=== PATIENT | male | born 1990 | race Caucasian/White ===

== ENCOUNTER 2017-01-14 20:46 | Emergency (ER) | payer SELFPAY ==
[~2017-01-14] VITALS: Ht 167.6 cm; Wt 81.6 kg
[2017-01-14 20:51] VITALS: BP 144/80
--- NOTE | 2017-01-14 21:44 | NUR ---
Patient ambulated to bed 05.
--- NOTE | 2017-01-14 21:48 | NUR ---
Dr. Avelar evaluating patient at bedside.
--- NOTE | 2017-01-14 21:50 | NUR ---
26Y/M PT PRESENTS TO ER W/C/O ANXIETY. PT STATES YESTERDAY HIS HANDS BECAME SWEATY AND HE FELT HIS HEART WAS RACING. HR 65 BPM UPON ARRIVAL TO ER. AAO X4, AMBULATORY WITH STEADY GAIT. RESPIRATIONS EVEN AND UNLABORED. VSS, NO S/SX OF DISTRESS AT THIS TIME. ER MD MADE AWARE OF PT. STATUS.
[2017-01-14] MEDS ORDERED: LORazepam 1 MG TAB PO ONE (21:55)
[2017-01-14] MEDS ORDERED: LIDOCAINE VISCOUS 2% 20 ML UDC PO ONE (21:55)
[2017-01-14] MEDS ORDERED: DICYCLOMINE HCL LIQUID 10 MG/5 ML UDC PO ONE (21:55)
[2017-01-14] MEDS ORDERED: ALUMINUM HYD/MAG/SIMETHICONE 30 ML UDC PO ONE (21:55)
[2017-01-14 22:17] LABS: APPEARANCE,URINE CLEAR (CLEAR); BILIRUBIN,URINE NEGATIVE (NEGATIVE); BLOOD, URINE NEGATIVE (NEGATIVE); COLOR,URINE YELLOW (YELLOW); LEUKOCYTE ESTERASE ,URINE NEGATIVE (NEGATIVE); NITRITE, URINE NEGATIVE (NEGATIVE); PROTEIN,URINE NEGATIVE (NEGATIVE); UGLUCOSE NEGATIVE (NEGATIVE); UROBILINOGEN,URINE 0.2 EU/dL (0.2 - 1)
[2017-01-14 22:21] LABS: BASOPHILS # (AUTO) 0.1 K/uL (0.00-0.22); BASOPHILS % (AUTO) 1.1 % (0.0-2.0); EOSINOPHILS # (AUTO) 0.2 K/uL (0-0.4); EOSINOPHILS % (AUTO) 2.2 % (0.0-4.0); HEMATOCRIT 49.4 % (36-52); HEMOGLOBIN 15.8 g/dL (12.0-18.0); LYMPHOCYTES # (AUTO) 1.7 K/uL (2.0-11.5); LYMPHOCYTES % (AUTO) 15.5 % (20.5-51.1); MEAN CORPUSCULAR HEMOGLOBIN 27 pg (27-31); MEAN CORPUSCULAR HGB CONC 32 g/dL (33-37); MEAN CORPUSCULAR VOLUME 84 fL (80-94); MONOCYTES # (AUTO) 0.6 K/uL (0.8-1.0); MONOCYTES % (AUTO) 5.5 % (1.7-9.3); NEUTROPHILS # (AUTO) 8.3 K/uL (1.8-7.7); NEUTROPHILS % (AUTO) 75.7 % (42.2-75.2); PLATELET COUNT (AUTO) 210 K/uL (140-450); RED BLOOD CELL COUNT(AUTO) 5.91 MIL/uL (4.20-6.10); RED CELL DISTRIBUTION WIDTH 12.5 % (11.6-13.7); WHITE BLOOD COUNT (AUTO) 10.9 K/uL (4.8-10.8)
[2017-01-14 22:28] LABS: AMPHETAMINE, URINE NEG. ng/ml (NEG <=1000); BARBITURATE, URINE NEG. ng/ml (NEG <=200); BENZODIAZEPINE, URINE NEG. ng/mL (NEG <=200); CANNABINOID, URINE POS. ng/mL (NEG <=50); COCAINE, URINE NEG. ng/mL (NEG <=300); OPIATE, URINE NEG. ng/mL (NEG <=2000); PHENCYCLIDINE SCREEN,URINE NEG. ng/mL (NEG <=25)
[2017-01-14 22:29] LABS: ANION GAP 11.6 (8-16); CALCIUM 9.3 mg/dL (8.5-10.1); CARBON DIOXIDE 29.4 mmol/L (21-32); CREATININE 1.1 mg/dL (0.7-1.3)
[2017-01-14 22:36] LABS: ALBUMIN 4.6 g/dL (3.4-5.0); TOTAL BILIRUBIN 0.8 mg/dL (0.0-1.0); TOTAL PROTEIN, SERUM 8.2 g/dL (6.4-8.2)
--- NOTE | 2017-01-14 23:05 | NUR ---
Patient discharged with v/s stable. Written and verbal after care instructions given and explained. Patient alert, oriented and verbalized understanding of instructions. Ambulatory with steady gait. All questions addressed prior to discharge. ID band removed. Patient advised to follow up with PMD. Rx of ATIVAN 1 MG, ZANTAC 300 MG given. Patient educated on indication of medication including possible reaction and side effects. Opportunity to ask questions provided and answered.
[2017-01-14 23:07] VITALS: BP 122/82
== END 2017-01-14 23:05 | disposition home or self-care (01) ==
LOC: MED 20:46
DX: R07.89 Other chest pain (principal); K21.9 Gastro-esophageal reflux disease without esophagitis; F41.9 Anxiety disorder, unspecified; F12.10 Cannabis abuse, uncomplicated; F10.99 Alcohol use, unspecified with unspecified alcohol-induced disorder
CPT/HCPCS: 36415; 80053; 80305; 81003; 85025; 93005; 99285

== ENCOUNTER 2017-06-13 20:16 | Emergency (ER) | payer OTHER ==
[~2017-06-13] VITALS: Ht 167.6 cm; Wt 72.6 kg
[2017-06-13 20:53] VITALS: BP 127/70
--- NOTE | 2017-06-13 20:58 | NUR ---
PT PROVIDED URINE CUP
--- NOTE | 2017-06-13 20:59 | NUR ---
pt to lobby awaiting room for MSE. VSS.
--- NOTE | 2017-06-14 00:27 | NUR ---
Patient to OF2. RN evaluating patient.
[2017-06-14 00:29] VITALS: BP 127/70
--- NOTE | 2017-06-14 00:30 | NUR ---
PATIENT PRESENTS TO ED WITH BODY CHILLS; VOMITING;ORTEGA; X 1 DAY PT SKIN IS PINK/WARM/DRY; AAOX4 WITH EVEN AND STEADY GAIT; LUNGS CLEAR BL; HR EVEN AND REGULAR; PT DENIES ANY CP, SOB AT THIS TIME; PATIENT STATES PAIN OF 7/10 AT THIS TIME; VSS; PATIENT POSITIONED FOR COMFORT; HOB ELEVATED; BEDRAILS UP X2; BED DOWN. ER MD MADE AWARE OF PT STATUS.
[2017-06-14] MEDS ORDERED: ONDANSETRON 4 MG/2 ML VIAL IVP ONE (00:40)
[2017-06-14] MEDS ORDERED: NACL 0.9% 1,000 ML IV ONE (00:40)
[2017-06-14] MEDS ORDERED: KETOROLAC 30 MG/ML VIAL IVP ONE (00:40)
--- NOTE | 2017-06-14 01:22 | NUR ---
Patient appears to be resting comfortably in bed. Vital Signs within normal limits. Respirations even and unlabored.
--- NOTE | 2017-06-14 01:35 | NUR ---
IV removed, catheter intact and site benign. Applied folded 4x4 gauze and tape to stop bleeding.
--- NOTE | 2017-06-14 01:46 | NUR ---
Patient discharged with v/s stable. Written and verbal after care instructions given and explained. Patient verbalized understanding. Ambulatory with steady gait. All questions addressed prior to discharge. Advised to follow up with PMD. DISCHARGED BY DR ARROYO
== END 2017-06-14 01:46 | disposition home or self-care (01) ==
LOC: MED 20:16
DX: B34.9 Viral infection, unspecified (principal); K21.9 Gastro-esophageal reflux disease without esophagitis
CPT/HCPCS: 96361; 96374; 96375; 99284; J1885; J2405; J7030

== ENCOUNTER 2017-07-10 09:01 | Emergency (ER) | payer OTHER ==
[~2017-07-10] VITALS: Ht 167.6 cm; Wt 77.7 kg
[2017-07-10 09:14] VITALS: BP 131/83
--- NOTE | 2017-07-10 09:17 | NUR ---
PT AA&OX4 WITH EVEN AND STEADY GAIT, RR EVEN/UNLABORED; PT TO LOBBY AWAITING OPEN BED.
--- NOTE | 2017-07-10 09:49 | NUR ---
PT AMBULATED TO BED 11.
--- NOTE | 2017-07-10 09:50 | NUR ---
27M BIB FAMILY C/O LLQ ABDOMINAL PAIN X 1 WEEK. HX: GERD, H.PYLORI. SKIN IS PINK/WARM/DRY; AAOX4 WITH EVEN AND STEADY GAIT; LUNGS CLEAR BL; PATIENT STATES PAIN OF 5/10 AT THIS TIME; PATIENT POSITIONED FOR COMFORT; HOB ELEVATED; BEDRAILS UP X2; BED DOWN. ER MD MADE AWARE OF PT STATUS.
--- NOTE | 2017-07-10 10:14 | NUR ---
PT TAKEN TO CT
[2017-07-10 11:25] VITALS: BP 109/74
--- NOTE | 2017-07-10 11:25 | NUR ---
Patient discharged with v/s stable. Written and verbal after care instructions given and explained. Patient alert, oriented and verbalized understanding of instructions. Ambulatory with steady gait. All questions addressed prior to discharge. ID band removed. Patient advised to follow up with PMD. Rx of BENTYL given. Patient educated on indication of medication including possible reaction and side effects. Opportunity to ask questions provided and answered.
== END 2017-07-10 11:25 | disposition home or self-care (01) ==
LOC: MED 09:01
DX: R10.32 Left lower quadrant pain (principal); K21.9 Gastro-esophageal reflux disease without esophagitis
CPT/HCPCS: 81002; 99284

== ENCOUNTER 2017-12-08 21:22 | Emergency (ER) | payer OTHER ==
[~2017-12-08] VITALS: Ht 167.6 cm; Wt 75.9 kg
[2017-12-08 21:25] VITALS: BP 136/78
--- NOTE | 2017-12-08 21:30 | NUR ---
PT AMBULATED TO ROOM 6 BY BETTY NINO
--- NOTE | 2017-12-08 21:35 | NUR ---
PT PRESENTS C/O LLQ AND EPIGASTRIC ABD PAIN WORSENING TODAY BUT HAS HX OF PAIN OVER LAST YEAR. SEEN BY PMD AND TOLD HE NEEDS TO SEE A GI SPECIALIST BUT HAS YET TO SEE ONE. PAIN IS 5/10 BURNING PAIN, NON RADIATING. NAD, PLACED ON MONITOR. WILL CONTINUE TO MONITOR CLOSELY. HX OF GERD AND H. PYLORI PT DENIES N/V/D; SKIN IS INTACT, PINK/WARM/DRY; AAOX4, PERRL, WITH EVEN AND STEADY GAIT; LUNGS CLEAR BL, BREATHING UNLABORED; HR EVEN AND REGULAR, BL PERIPHERAL PULSES PRESENT; BS ACTIVE X4, NO TENDERNESS TO PALPATION, NO HEPATOSPLENOMEGALLY PALPATED, RESONANT TO PERCUSSION; PT DENIES ANY FEVER, CP, SOB, OR COUGH AT THIS TIME; PT STATES 5/10 PAIN AT THIS TIME; VSS; PATIENT POSITIONED FOR COMFORT; HOB ELEVATED; BEDRAILS UP X2; BED DOWN.
[2017-12-08] MEDS ORDERED: DICYCLOMINE HCL LIQUID 20 MG, ALUMINUM HYD/MAG/SIMETHICONE 30 ML, LIDOCAINE VISCOUS 2% ... PO ONE ×3 (22:10)
[2017-12-08 22:28] VITALS: BP 112/70
--- NOTE | 2017-12-08 22:28 | NUR ---
Patient discharged with v/s stable. Written and verbal after care instructions given and explained. Patient alert, oriented and verbalized understanding of instructions. Ambulatory with steady gait. All questions addressed prior to discharge. ID band removed. Patient advised to follow up with PMD. Rx of PRILOSEC AND MOTRIN given. Patient educated on indication of medication including possible reaction and side effects. Opportunity to ask questions provided and answered.
== END 2017-12-08 22:28 | disposition home or self-care (01) ==
LOC: MED 21:22
DX: R10.12 Left upper quadrant pain (principal); R19.7 Diarrhea, unspecified; R11.0 Nausea; K21.9 Gastro-esophageal reflux disease without esophagitis; F17.210 Nicotine dependence, cigarettes, uncomplicated
CPT/HCPCS: 81002; 99283

== ENCOUNTER 2018-03-04 16:23 | Emergency (ER) | payer OTHER ==
[~2018-03-04] VITALS: Ht 167.6 cm; Wt 72.6 kg
[2018-03-04 16:28] VITALS: BP 120/74
--- NOTE | 2018-03-04 17:20 | NUR ---
PT AMBULATED TO BED #5
--- NOTE | 2018-03-04 17:21 | NUR ---
PT PRESENTED ER WITH C/O PAIN TO THE CHEST X 2 1/2 WEEKS. PT FEELS THAT IT IS MUSCULAR DUE TO THE TENDERNESS TO TOUCH. PT STATED THAT HE SNEEZED AND FELT PAIN IN HIS CHEST. HE HAS BEEN TAKING IBUPROFEN WITH NO RELIEF. PT FEELS SHARP AND AT TIMES IT RADIATES TO BACK. KNA AND MEDICAL HX GERD. DENIES N/V/D; SKIN IS PINK/WARM/DRY; AAOX4 WITH EVEN AND STEADY GAIT; HR EVEN AND REGULAR; PT DENIES ANY FEVER,SOB, OR COUGH AT THIS TIME; PATIENT STATES PAIN OF 6/10 AT THIS TIME; VSS; PATIENT POSITIONED FOR COMFORT; HOB ELEVATED; BEDRAILS UP X2; BED DOWN. ER MD MADE AWARE OF PT STATUS.
[2018-03-04] MEDS ORDERED: DEXAMETHASONE 4 MG/ML VIAL IVP ONE (18:30)
[2018-03-04] MEDS ORDERED: IPRATROPIUM 0.02% 0.5 MG/2.5 ML NEBU INH ONE (18:30)
[2018-03-04] MEDS ORDERED: ALBUTEROL 0.083% 2.5 MG/3 ML NEBU INH ONE (18:30)
[2018-03-04] MEDS ORDERED: KETOROLAC 30 MG/ML VIAL IVP ONE (18:30)
--- NOTE | 2018-03-04 18:42 | NUR ---
Breathing treatment administered at bedside by respiratory therapist.
[2018-03-04] MEDS ORDERED: DEXAMETHASONE 4 MG/ML VIAL IM ONE (18:50)
[2018-03-04] MEDS ORDERED: KETOROLAC 30 MG/ML VIAL IM ONE (18:50)
--- NOTE | 2018-03-04 18:59 | NUR ---
PATIENT CAME IN DUE TO A PAIN ON THE LEFT SIDE OF THE CHEST THAT OCCURED AFTER A SNEEZE. PATIENT STATES NO HISTORY OF ASTHMA OR RESPIRATORY DISEASES. PATIENT STATES HE OCCASIONALLY SMOKES MARIJUANA. PATIENT STATES THAT HE HAD A COLD LAST WEEK THAT LASTED ABOUT 3 DAYS OF RUNNING NOSE AND WHITE/CLEAR PHLEGM IN HIS THROAT BUT NO COUGH.
--- NOTE | 2018-03-04 19:08 | NUR ---
PT STATED CHEST PAIN RELIEVED. FAMILY AT BEDSIDE.
--- NOTE | 2018-03-04 19:10 | NUR ---
REPORT GIVEN TO JEAN NINO.
[2018-03-04 19:15] LABS: BASOPHILS % (AUTO) 0.2 % (0.0-2.0); EOSINOPHILS # (AUTO) 0.2 K/uL (0-0.4); EOSINOPHILS % (AUTO) 2.7 % (0.0-4.0); HEMATOCRIT 45.2 % (36-52); HEMOGLOBIN 14.8 g/dL (12.0-18.0); LYMPHOCYTES # (AUTO) 1.6 K/uL (2.0-11.5); LYMPHOCYTES % (AUTO) 21.7 % (20.5-51.1); MEAN CORPUSCULAR HEMOGLOBIN 27 pg (27-31); MEAN CORPUSCULAR HGB CONC 33 g/dL (33-37); MEAN CORPUSCULAR VOLUME 83.6 fL (80-94); MONOCYTES # (AUTO) 0.4 K/uL (0.8-1.0); MONOCYTES % (AUTO) 5.5 % (1.7-9.3); NEUTROPHILS # (AUTO) 5.2 K/uL (1.8-7.7); NEUTROPHILS % (AUTO) 69.9 % (42.2-75.2); PLATELET COUNT (AUTO) 217 K/uL (140-450); RED BLOOD CELL COUNT(AUTO) 5.41 MIL/uL (4.20-6.10); RED CELL DISTRIBUTION WIDTH 13.3 % (11.6-13.7); WHITE BLOOD COUNT (AUTO) 7.4 K/uL (4.8-10.8)
--- NOTE | 2018-03-04 19:24 | NUR ---
pt laying in bed, appears to be in no acute distress, pending d/c paperwork from dr álvarez.
[2018-03-04 19:26] LABS: ALBUMIN 4.1 g/dL (3.4-5.0); ANION GAP 13.5 (8-16); CARBON DIOXIDE 28.6 mmol/L (21-32); CREATININE 0.9 mg/dL (0.7-1.3); POTASSIUM 4.1 mmol/L (3.5-5.1); TOTAL BILIRUBIN 0.5 mg/dL (0.0-1.0)
[2018-03-04 19:30] VITALS: BP 120/74
--- NOTE | 2018-03-04 19:30 | NUR ---
Patient discharged with v/s stable. Written and verbal after care instructions given and explained. Patient alert, oriented and verbalized understanding of instructions. Ambulatory with steady gait. All questions addressed prior to discharge. ID band removed. Patient advised to follow up with PMD. Rx of IBUPROFEN, PREDNISONE AND ACETAMINOPHEN WAS given. Patient educated on indication of medication including possible reaction and side effects. Opportunity to ask questions provided and answered.
[2018-03-04 19:35] LABS: PROTHROMBIN TIME 10.7 secs (10.8-13.4)
== END 2018-03-04 19:30 | disposition home or self-care (01) ==
LOC: MED 16:23
DX: R07.89 Other chest pain (principal); R06.02 Shortness of breath; K21.9 Gastro-esophageal reflux disease without esophagitis
CPT/HCPCS: 36415; 71045; 80053; 84484; 85025; 85610; 85730; 93005; 96372; 99285; J1885; J7613; J7644; Q0092; J1100

== ENCOUNTER 2018-03-08 01:23 | Emergency (ER) | payer OTHER ==
[~2018-03-08] VITALS: Ht 167.6 cm; Wt 72.6 kg
[2018-03-08 01:26] VITALS: BP 124/88
--- NOTE | 2018-03-08 01:31 | NUR ---
TO LOBBY AMBULATORY, A/W BED, ANGELA VERNON NOTED
--- NOTE | 2018-03-08 01:50 | NUR ---
PATIENT AMBULATED TO ER BED 9.
--- NOTE | 2018-03-08 01:54 | NUR ---
PATIENT IS A 27 Y/O MALE WHO PRESENTS TO THE ED C/O RASH. PT STATES THAT HE WAS GIVEN RX OF PREDNISONE AND HAD A BODY RASH START TONIGHT. PT REPORTS 5/10 ITCHING BODY PAIN THAT DOES NOT RADIATE. PT STATES THAT HE WAS SEEN RECENTLY IN ER AND GIVEN PREDNISONE RX. PT DENIES CP, SOB, REPORTS NAUSEA DENIES VOMITING/DIARRHEA. PT AWAKE AND ALERT, RR EVEN/UNLABORED. PT REPOSITIONED FOR COMFORT, BED IN LOWEST POSITION. ER MD DR. WARD NOTIFIED. WILL CONTINUE TO MONITOR.
[2018-03-08] MEDS ORDERED: diphenhydrAMINE 50 MG CAP PO ONE (02:30)
[2018-03-08 02:45] VITALS: BP 119/82
--- NOTE | 2018-03-08 02:45 | NUR ---
Patient discharged with v/s stable. Written and verbal after care instructions given and explained. Patient alert, oriented and verbalized understanding of instructions. Ambulatory with steady gait. All questions addressed prior to discharge. ID band removed. Patient advised to follow up with PMD. Rx of BENADRYL 50MG given. Patient educated on indication of medication including possible reaction and side effects. Opportunity to ask questions provided and answered.
[2018-03-08] MEDS ORDERED: OMEP20TC10 PO (21:18)
== END 2018-03-08 02:45 | disposition home or self-care (01) ==
LOC: MED 01:23
DX: L50.9 Urticaria, unspecified (principal); K21.9 Gastro-esophageal reflux disease without esophagitis
CPT/HCPCS: 99283; Q0163

== ENCOUNTER 2018-03-08 21:11 | Emergency (ER) | payer OTHER ==
[~2018-03-08] VITALS: Ht 167.6 cm; Wt 72.6 kg
[2018-03-08 21:13] VITALS: BP 116/78
[2018-03-08] MEDS ORDERED: OMEP20TC10 PO (21:18)
--- NOTE | 2018-03-08 21:19 | NUR ---
pt ambulated to er bed 03
--- NOTE | 2018-03-08 21:22 | NUR ---
Report given to Myron NINO.
--- NOTE | 2018-03-08 21:25 | NUR ---
PATIENT SHARON 27 Y/O MALE WHO PRESENTS TO THE ED C/O RASH. PT STATES THAT HE WAS SEEN EARLIER AND GIVEN BENADRYL RX. PT DENIES PAIN AT THIS TIME, NOTED BODY RASH AT THIS TIME. PT DENIES CP, SOB, N/V/D. PT AWAKE AND ALERT, RR EVEN/UNLABORED. PT REPOSITIONED FOR COMFORT, BED IN LOWEST POSITION. ER MD DR. GREGORIO NOTIFIED. WILL CONTINUE TO MONITOR.
[2018-03-08] MEDS ORDERED: DEXAMETHASONE 10 MG/ML VIAL IM ONE (21:35)
[2018-03-08 21:58] VITALS: BP 121/82
--- NOTE | 2018-03-08 21:58 | NUR ---
Patient discharged with v/s stable. Written and verbal after care instructions given and explained. Patient verbalized understanding. Ambulatory with steady gait. All questions addressed prior to discharge. Advised to follow up with PMD.
== END 2018-03-08 21:58 | disposition home or self-care (01) ==
LOC: MED 21:11
DX: L50.9 Urticaria, unspecified (principal); K21.9 Gastro-esophageal reflux disease without esophagitis
CPT/HCPCS: 96372; 99283; J1100

== ENCOUNTER 2018-03-13 22:50 | Emergency (ER) | payer OTHER ==
[~2018-03-13] VITALS: Ht 167.6 cm; Wt 77.1 kg
[~2018-03-13 22:50] MED LIST: OMEP20TC10 PO
[2018-03-13 22:59] VITALS: BP 143/81
--- NOTE | 2018-03-13 23:01 | NUR ---
PT TAKEN TO BED 12
--- NOTE | 2018-03-13 23:10 | NUR ---
PT PRESENTS TO ED WITH C/O HEADACHE AND NAUSEA X TODAY UPON WAKING UP. PER PT "I WOKE UP AN HOUR AGO AND JUST FELT WEIRD" PT REPORTS HX OF ANXIETY. PT DENIES CP, SOB AT THIS TIME. ABDONMEN IS SOFT, NON-TENDER. BOWEL SOUNDS ACTIVE X 4 QUADRANTS. PT IS ALERT AND ORIENTED TO NAME, , EVENT. PT PLACED ON MONITORS. VSS. SUPA IBARRA.
--- NOTE | 2018-03-13 23:32 | NUR ---
Dr. Russell evaluating patient at bedside.
[2018-03-13] MEDS ORDERED: KETOROLAC 60 MG/2 ML VIAL IM ONE (23:40)
[2018-03-14] MEDS ORDERED: PROCHLORPERAZINE 10 MG/2 ML VIAL IM ONE (00:30)
[2018-03-14] MEDS ORDERED: diphenhydrAMINE 50 MG/ML VIAL IM ONE (00:30)
--- NOTE | 2018-03-14 01:13 | NUR ---
PT RETURN FROM CT
[2018-03-14 01:40] VITALS: BP 137/77
== END 2018-03-14 01:40 | disposition home or self-care (01) ==
LOC: MED 22:50
DX: R51 Headache (principal); R11.2 Nausea with vomiting, unspecified; R42 Dizziness and giddiness; R07.89 Other chest pain; K21.9 Gastro-esophageal reflux disease without esophagitis; F41.9 Anxiety disorder, unspecified
CPT/HCPCS: 70450; 93005; 96372; 99284; J0780; J1200; J1885

== ENCOUNTER 2018-06-12 17:21 | Emergency (ER) | payer OTHER ==
[~2018-06-12] VITALS: Ht 167.6 cm; Wt 74.9 kg
[2018-06-12 17:35] VITALS: BP 126/75
--- NOTE | 2018-06-12 17:37 | NUR ---
PT AMBULATES BACK TO THE LOBBY
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
[2018-06-12 21:03] VITALS: BP 122/75
== END 2018-06-12 21:06 | disposition home or self-care (01) ==
LOC: MED 17:21
DX: H72.92 Unspecified perforation of tympanic membrane, left ear (principal); K21.9 Gastro-esophageal reflux disease without esophagitis
CPT/HCPCS: 99281

== ENCOUNTER 2018-08-27 17:02 | Emergency (ER) | payer OTHER ==
[~2018-08-27] VITALS: Ht 170.2 cm; Wt 79.4 kg
[2018-08-27 17:08] VITALS: BP 118/70
--- NOTE | 2018-08-27 17:50 | NUR ---
PT TO ER BED 12
--- NOTE | 2018-08-27 18:00 | NUR ---
c/o LLQ pain x last night bloated , emesis x1 last bm today, soft non straining
--- NOTE | 2018-08-27 19:22 | NUR ---
report given to yaneli Garcia
--- NOTE | 2018-08-27 19:23 | NUR ---
RECEIVED BEDSIDE REPORT FROM TRUNG UP. PT RESTING IN BED. VSS.
--- NOTE | 2018-08-27 20:45 | NUR ---
PT STILL RESTING, STATES PAIN HAS DIMINISHED TO TOLERABLE LEVEL ON IT'S OWN. VSS.
[2018-08-27 21:10] VITALS: BP 102/64
== END 2018-08-27 21:10 | disposition home or self-care (01) ==
LOC: MED 17:02
DX: R10.9 Unspecified abdominal pain (principal); K21.9 Gastro-esophageal reflux disease without esophagitis; Z79.899 Other long term (current) drug therapy
CPT/HCPCS: 99284

== ENCOUNTER 2018-09-22 23:23 | Emergency (ER) | payer OTHER ==
[~2018-09-22] VITALS: Ht 165.1 cm; Wt 88.5 kg
[2018-09-22 23:32] VITALS: BP 113/73
--- NOTE | 2018-09-22 23:35 | NUR ---
TO LOBBY VIA W/C, VSS, A/W BED, JANEEN NOTED
--- NOTE | 2018-09-22 23:40 | NUR ---
Dustin arias in [facility] - 09/22/18 at 2341 by CATALINO PT TAKEN TO BED 7
--- NOTE | 2018-09-23 00:17 | NUR ---
PT TAKEN TO BED 9
--- NOTE | 2018-09-23 00:25 | NUR ---
BIB GIRLFRIEND FOR ETOH INTOXICATION. PT STATED THAT HE HAD 3 BEERS AND HAS SOB AND ABDOMINAL PAIN, HAS NAUSEA, DIFFICULTY PASSING GAS, CAN'T VOMIT X 2 DAYS. LS CLEAR TO AUSCULTATION, SATING 96%, RR 16. BS X 4 Q, TENDER TO PALPATION ON LLQ. ABD SOFT AND NON DISTENDED.ER MD AWARE, SAFETY PRECAUTIONS IN PLACE.
--- NOTE | 2018-09-23 00:56 | NUR ---
Dr. Russell evaluating patient at bedside.
[2018-09-23 01:32] LABS: BASOPHILS % (AUTO) 0.2 % (0.0-2.0); EOSINOPHILS % (AUTO) 0.6 % (0.0-4.0); HEMATOCRIT 42.8 % (36-52); HEMOGLOBIN 14.2 g/dL (12.0-18.0); LYMPHOCYTES # (AUTO) 1.6 K/uL (2.0-11.5); LYMPHOCYTES % (AUTO) 25.4 % (20.5-51.1); MEAN CORPUSCULAR HEMOGLOBIN 27 pg (27-31); MEAN CORPUSCULAR HGB CONC 33 g/dL (33-37); MEAN CORPUSCULAR VOLUME 82.1 fL (80-94); MONOCYTES # (AUTO) 0.3 K/uL (0.8-1.0); MONOCYTES % (AUTO) 4.8 % (1.7-9.3); NEUTROPHILS # (AUTO) 4.5 K/uL (1.8-7.7); PLATELET COUNT (AUTO) 203 K/uL (140-450); RED BLOOD CELL COUNT(AUTO) 5.22 MIL/uL (4.20-6.10); RED CELL DISTRIBUTION WIDTH 13.3 % (11.6-13.7); WHITE BLOOD COUNT (AUTO) 6.4 K/uL (4.8-10.8)
[2018-09-23 01:38] LABS: BARBITURATE, URINE NEG. ng/ml (NEG <=200); BENZODIAZEPINE, URINE NEG. ng/mL (NEG <=200); CANNABINOID, URINE NEG. ng/mL (NEG <=50); COCAINE, URINE NEG. ng/mL (NEG <=300); OPIATE, URINE NEG. ng/mL (NEG <=2000); PHENCYCLIDINE SCREEN,URINE NEG. ng/mL (NEG <=25)
[2018-09-23 01:51] LABS: ANION GAP 18.1 (8-16); CARBON DIOXIDE 22.7 mmol/L (21-32); CHLORIDE 104 mmol/L (98-107); CREATININE 0.8 mg/dL (0.7-1.3); GFR ARICAN-AMERICAN 149 mL/min (>90); GLUCOSE 111 mg/dL (74-106); POTASSIUM 3.8 mmol/L (3.5-5.1); SODIUM SERUM 141 mmol/L (136-145); UREA NITROGEN, BLOOD 8 mg/dL (7-18)
[2018-09-23 01:57] LABS: ALBUMIN 4.3 g/dL (3.4-5.0); ASPARTATE AMINOTRANSFERASE 32 U/L (15-37); TOTAL BILIRUBIN 0.2 mg/dL (0.0-1.0)
[2018-09-23 02:01] LABS: ACETAMINOPHEN < 0.5 ug/ml (10-30); SALICYLATE < 2.8 mg/dL (2.8-20.0)
[2018-09-23] MEDS ORDERED: PANTOPRAZOLE 40 MG TABEC PO ONE (02:15)
[2018-09-23 03:03] VITALS: BP 110/74
--- NOTE | 2018-09-23 03:03 | NUR ---
Patient discharged with v/s stable. Written and verbal after care instructions given and explained. Patient alert, oriented and verbalized understanding of instructions. Ambulatory with steady gait. All questions addressed prior to discharge. ID band removed. Patient advised to follow up with PMD. Rx of Carafate, Protonix given. Patient educated on indication of medication including possible reaction and side effects. Opportunity to ask questions provided and answered. Pt ambulated with girlfriend. Note for work provided.
== END 2018-09-23 03:03 | disposition home or self-care (01) ==
LOC: MED 23:32
DX: K29.70 Gastritis, unspecified, without bleeding (principal); K59.00 Constipation, unspecified; R06.02 Shortness of breath; K21.9 Gastro-esophageal reflux disease without esophagitis; Z79.899 Other long term (current) drug therapy
CPT/HCPCS: 36415; 80053; 80305; 85025; 99283; G0480; G0482

== ENCOUNTER 2019-09-08 19:10 | Emergency (ER) | payer OTHER ==
[~2019-09-08] VITALS: Ht 167.6 cm; Wt 78.0 kg
[2019-09-08 19:15] VITALS: BP 119/78
[2019-09-08] MEDS ORDERED: FAMOTIDINE 20 MG/2 ML VIAL IVP ONE (20:10)
[2019-09-08] MEDS ORDERED: NACL 0.9% 1,000 ML IV ONE (20:10)
[2019-09-08 20:44] LABS: BASOPHILS % (AUTO) 0.2 % (0.0-2.0); EOSINOPHILS # (AUTO) 0.1 K/uL (0-0.4); EOSINOPHILS % (AUTO) 0.9 % (0.0-4.0); HEMATOCRIT 44.1 % (36-52); HEMOGLOBIN 14.3 g/dL (12.0-18.0); LYMPHOCYTES # (AUTO) 1.8 K/uL (2.0-11.5); LYMPHOCYTES % (AUTO) 21.6 % (20.5-51.1); MEAN CORPUSCULAR HEMOGLOBIN 27 pg (27-31); MEAN CORPUSCULAR HGB CONC 32 g/dL (33-37); MEAN CORPUSCULAR VOLUME 84.1 fL (80-94); MONOCYTES # (AUTO) 0.4 K/uL (0.8-1.0); MONOCYTES % (AUTO) 5.2 % (1.7-9.3); NEUTROPHILS # (AUTO) 5.9 K/uL (1.8-7.7); NEUTROPHILS % (AUTO) 72.1 % (42.2-75.2); PLATELET COUNT (AUTO) 196 K/uL (140-450); RED BLOOD CELL COUNT(AUTO) 5.24 MIL/uL (4.20-6.10); RED CELL DISTRIBUTION WIDTH 13.1 % (11.6-13.7); WHITE BLOOD COUNT (AUTO) 8.2 K/uL (4.8-10.8)
[2019-09-08 20:46] LABS: APPEARANCE,URINE CLEAR (CLEAR); BILIRUBIN,URINE NEGATIVE (NEGATIVE); BLOOD, URINE NEGATIVE (NEGATIVE); COLOR,URINE YELLOW (YELLOW); LEUKOCYTE ESTERASE ,URINE NEGATIVE (NEGATIVE); NITRITE, URINE NEGATIVE (NEGATIVE); UGLUCOSE NEGATIVE (NEGATIVE)
[2019-09-08 21:01] LABS: ANION GAP 12.1 (8-16); CARBON DIOXIDE 29.6 mmol/L (21-32); POTASSIUM 3.7 mmol/L (3.5-5.1); TOTAL BILIRUBIN 0.2 mg/dL (0.0-1.0)
[2019-09-08 21:28] VITALS: BP 119/78
== END 2019-09-08 21:29 | disposition home or self-care (01) ==
LOC: MED 19:10
DX: K21.9 Gastro-esophageal reflux disease without esophagitis (principal); R42 Dizziness and giddiness; Z98.890 Other specified postprocedural states; Z79.899 Other long term (current) drug therapy
CPT/HCPCS: 36415; 76705; 80053; 81003; 82150; 82948; 83690; 85025; 96361; 96374; 99284; J3490; J7030; Q0092

== ENCOUNTER 2019-10-15 23:12 | Emergency (ER) | payer OTHER ==
[~2019-10-15] VITALS: Ht 170.2 cm; Wt 76.2 kg
[2019-10-15 23:25] VITALS: BP 111/78
--- NOTE | 2019-10-15 23:34 | NUR ---
PT AMBULATED TO BED 2 WITH STEADY GAIT. NEGATIVE COVID SCREEN. PT WEARING MASK.
--- NOTE | 2019-10-15 23:35 | NUR ---
AT BEDSIDE EXAMINING PT
--- NOTE | 2019-10-15 23:37 | NUR ---
Dustin arias in [facility] - 10/15/[email or web address] ATKINS AT BEDSIDE.
[2019-10-15] MEDS ORDERED: ALUMINUM HYD/MAG/SIMETHICONE 30 ML UDC PO ONE (23:40)
[2019-10-15] MEDS ORDERED: LIDOCAINE VISCOUS 2% 20 ML UDC PO ONE (23:40)
[2019-10-15] MEDS ORDERED: NACL 0.9% 1,000 ML IV ONE (23:40)
--- NOTE | 2019-10-15 23:45 | NUR ---
29 Y/O MALE C/O N/V/CONSTIPATION X 2 DAYS/CHANGE IN APPETITIE. PT STATED HAS BEEN HAVING INTERMITTENT ABD CRAMPING 12/25 X 3 WEEKS NOW . PT STATED HAD ENDOSCOPY 1 WEEK AGO. PT DENIES ANY TRAUMA. PT ABD BLOATED AND TENDER TO PALP ON RIGHT SIDE. DENIES DIARRHEA; SKIN IS PINK/WARM/DRY; AAOX4 WITH EVEN AND STEADY GAIT; PT DENIES ANY FEVER, CP, SOB, OR COUGH AT THIS TIME; VSS; PATIENT POSITIONED FOR COMFORT; HOB ELEVATED; BEDRAILS UP X1; BED DOWN AND LOCKED MEDICAL HX: PT DENIES NKA
[2019-10-15 23:59] LABS: BASOPHILS % (AUTO) 0.3 % (0.0-2.0); EOSINOPHILS # (AUTO) 0.2 K/uL (0-0.4); EOSINOPHILS % (AUTO) 3.1 % (0.0-4.0); HEMATOCRIT 43.6 % (36-52); HEMOGLOBIN 14.4 g/dL (12.0-18.0); LYMPHOCYTES # (AUTO) 2.5 K/uL (2.0-11.5); LYMPHOCYTES % (AUTO) 35.4 % (20.5-51.1); MEAN CORPUSCULAR HEMOGLOBIN 27 pg (27-31); MEAN CORPUSCULAR HGB CONC 33 g/dL (33-37); MEAN CORPUSCULAR VOLUME 82.5 fL (80-94); MONOCYTES # (AUTO) 0.4 K/uL (0.8-1.0); MONOCYTES % (AUTO) 5.7 % (1.7-9.3); NEUTROPHILS # (AUTO) 3.9 K/uL (1.8-7.7); NEUTROPHILS % (AUTO) 55.5 % (42.2-75.2); PLATELET COUNT (AUTO) 195 K/uL (140-450); RED BLOOD CELL COUNT(AUTO) 5.28 MIL/uL (4.20-6.10); RED CELL DISTRIBUTION WIDTH 13.5 % (11.6-13.7)
[2019-10-16 00:16] LABS: ANION GAP 12.2 (8-16); CARBON DIOXIDE 27.3 mmol/L (21-32); CREATININE 0.9 mg/dL (0.6-1.3); POTASSIUM 3.5 mmol/L (3.5-5.1); TOTAL BILIRUBIN 0.6 mg/dL (0.0-1.0)
--- NOTE | 2019-10-16 00:19 | NUR ---
OBTAINED PT SIGNATURE FOR CT WITH CONTRAST
--- NOTE | 2019-10-16 00:56 | NUR ---
PT GETTING TRANSFERRED TO CT VIA W/C.
--- NOTE | 2019-10-16 01:00 | NUR ---
PT TAKEN TO CT
--- NOTE | 2019-10-16 01:22 | NUR ---
PT RETURNED BACK FROM CT VIA. W/C.
--- NOTE | 2019-10-16 01:43 | NUR ---
PT RESTING IN BED IN POSITION OF COMFORT, VSS, BED LOW AND LOCKED, 1 SIDERAIL UP, WILL CONTINUE TO MONITOR
--- NOTE | 2019-10-16 02:31 | NUR ---
PT RESTING IN BED IN POSITION OF COMFORT, VSS, BED LOW AND LOCKED, 1 SIDERAIL UP, WILL CONTINUE TO MONITOR
--- NOTE | 2019-10-16 03:02 | NUR ---
AT BEDSIDE TALKING TO PT
[2019-10-16 03:08] VITALS: BP 112/80
--- NOTE | 2019-10-16 03:08 | NUR ---
DPatient discharged with v/s stable. Written and verbal after care instructions given and explained. Patient alert, oriented and verbalized understanding of instructions. Ambulatory with steady gait. All questions addressed prior to discharge. ID band removed. Patient advised to follow up with PMD. Rx of ZOFRAN given. Patient educated on indication of medication including possible reaction and side effects. Opportunity to ask questions provided and answered.
[2019-10-17 06:07] LABS: HEPATITIS A ANTIBODY IGM Negative (Negative); HEPATITIS B CORE AB TOTAL Negative (Negative); HEPATITIS B SURFACE ANTIBODY Reactive (.); HEPATITIS B SURFACE ANTIGEN Negative (Negative)
== END 2019-10-16 03:08 | disposition home or self-care (01) ==
LOC: MED 23:12
DX: R10.84 Generalized abdominal pain (principal); R94.5 Abnormal results of liver function studies; K21.9 Gastro-esophageal reflux disease without esophagitis; Z79.899 Other long term (current) drug therapy
CPT/HCPCS: 36415; 74177; 80053; 85025; 86704; 86706; 86708; 86709; 86803; 87340; 99285; J7030; Q9967

== ENCOUNTER 2019-10-18 00:47 | Emergency (ER) | payer OTHER ==
[~2019-10-18] VITALS: Ht 167.6 cm; Wt 74.6 kg
[2019-10-18 00:55] VITALS: BP 110/75
--- NOTE | 2019-10-18 01:11 | NUR ---
PT TAKEN TO ER BED 11
--- NOTE | 2019-10-18 01:30 | NUR ---
LABS DRAWN AND SENT TO LAB
--- NOTE | 2019-10-18 01:47 | NUR ---
RIGHT SIDE ABD PAIN SINCE YESTERDAY. WAS SEEN X 2 DAYS AGO, LABS SHOWED ELEVATED LIVER ENZYMES. WANTS TO BE RECHECKED. PT STATES YELLOWING OF THE EYES BUT NEGATIVE UPON OBSERVATION. ABDOMEN SOFT AND NON TENDER UPON PALPATION. BOWEL SOUNDS NORMOACTIVE. -NAUSEA, -VOMITING, -DIARRHEA PMH--GERD, GASTRITIS, ESOPHAGITIS RX: DENIES
[2019-10-18 01:48] VITALS: BP 110/75
[2019-10-18 01:55] LABS: BASOPHILS % (AUTO) 0.5 % (0.0-2.0); EOSINOPHILS # (AUTO) 0.1 K/uL (0-0.4); EOSINOPHILS % (AUTO) 1.2 % (0.0-4.0); HEMATOCRIT 45.9 % (36-52); HEMOGLOBIN 15.1 g/dL (12.0-18.0); LYMPHOCYTES # (AUTO) 2.2 K/uL (2.0-11.5); LYMPHOCYTES % (AUTO) 29.5 % (20.5-51.1); MEAN CORPUSCULAR HEMOGLOBIN 27 pg (27-31); MEAN CORPUSCULAR HGB CONC 33 g/dL (33-37); MEAN CORPUSCULAR VOLUME 83.5 fL (80-94); MONOCYTES # (AUTO) 0.5 K/uL (0.8-1.0); MONOCYTES % (AUTO) 6.8 % (1.7-9.3); NEUTROPHILS # (AUTO) 4.6 K/uL (1.8-7.7); PLATELET COUNT (AUTO) 212 K/uL (140-450); WHITE BLOOD COUNT (AUTO) 7.3 K/uL (4.8-10.8)
[2019-10-18 02:12] LABS: ALBUMIN 4.1 g/dL (3.4-5.0); ANION GAP 13.4 (8-16); CARBON DIOXIDE 27.2 mmol/L (21-32); POTASSIUM 3.6 mmol/L (3.5-5.1); TOTAL BILIRUBIN 0.6 mg/dL (0.0-1.0)
== END 2019-10-18 03:17 | disposition home or self-care (01) ==
LOC: MED 00:47
DX: R74.0 Nonspecific elevation of levels of transaminase and lactic acid dehydrogenase [LDH] (principal); K21.9 Gastro-esophageal reflux disease without esophagitis; Z79.899 Other long term (current) drug therapy
CPT/HCPCS: 36415; 80053; 85025; 99283

== ENCOUNTER 2019-10-25 22:08 | Emergency (ER) | payer OTHER ==
[~2019-10-25] VITALS: Ht 167.6 cm; Wt 71.7 kg
--- NOTE | 2019-10-25 22:20 | NUR ---
PT AMBULATED TO BED 2 WITH STEADY GAIT
[2019-10-25 22:21] VITALS: BP 129/80
--- NOTE | 2019-10-25 22:35 | NUR ---
29 Y/O MALE C/O PT FEELS FATIGUED X 2 DAYS AND FEELS LIKE HE CANNOT QUITE CATCH HIS BREATH . RR EVEN AND UNLABORED. PT TALKING IN FULL SENTENCES. RR 18 AND O2 SAT 96 % ROOM AIR. DENIES ANY TRAUMA. NO PAIN. NO OTC PAIN MEDICATION. DENIES N/V/D; SKIN IS PINK/WARM/DRY; AAOX4 WITH EVEN AND STEADY GAIT; LUNGS CLEAR BL; HR EVEN AND REGULAR; PT DENIES ANY FEVER, CP, SOB, OR COUGH AT THIS TIME; PATIENT STATES PAIN OF 0/10 AT THIS TIME; VSS; PATIENT POSITIONED FOR COMFORT; HOB ELEVATED; BEDRAILS UP X1; BED DOWN AND LOCKED . MEDICAL HX: HEP A/GASTRITIS/ESOPHAGITIS NKA
--- NOTE | 2019-10-25 23:28 | NUR ---
LAB AT BEDSIDE
--- NOTE | 2019-10-25 23:32 | NUR ---
PT RESTING IN BED IN POSITION OF COMFORT, BED LOW AND LOCKED, 1 SIDERAIL UP, VSS, WILL CONTINUE TO MONITOR.
--- NOTE | 2019-10-26 00:50 | NUR ---
PT RESTING IN BED IN POSITION OF COMFORT, BED LOW AND LOCKED, 1 SIDERAIL UP, VSS, WILL CONTINUE TO MONITOR.
[2019-10-26] MEDS ORDERED: LORazepam 1 MG TAB PO ONE (00:55)
[2019-10-26 01:39] VITALS: BP 110/73
--- NOTE | 2019-10-26 01:39 | NUR ---
DPatient discharged with v/s stable. Written and verbal after care instructions given and explained. Patient alert, oriented and verbalized understanding of instructions. Ambulatory with steady gait. All questions addressed prior to discharge. ID band removed. Patient advised to follow up with PMD. Rx of XANAX given. Patient educated on indication of medication including possible reaction and side effects. Opportunity to ask questions provided and answered.
== END 2019-10-26 01:39 | disposition home or self-care (01) ==
LOC: MED 22:08
DX: F41.0 Panic disorder [episodic paroxysmal anxiety] (principal); R03.0 Elevated blood-pressure reading, without diagnosis of hypertension; K21.9 Gastro-esophageal reflux disease without esophagitis; Z79.899 Other long term (current) drug therapy
CPT/HCPCS: 36600; 71045; 82803; 99283; Q0092

== ENCOUNTER 2019-11-29 21:09 | Emergency (ER) | payer OTHER ==
[~2019-11-29] VITALS: Ht 167.6 cm; Wt 73.5 kg
[2019-11-29 21:13] VITALS: BP 117/71
--- NOTE | 2019-11-29 21:17 | NUR ---
PT AMBULATED TO BED 06 WITH STEADY GAIT.
--- NOTE | 2019-11-29 21:25 | NUR ---
29 YEAR OLD MALE COMPLAINS OF HEADACHE, NECK PAIN, AND LOWER BACK PAIN X 1 WEEK. PT STATES NO TRAUMA, JUST STARTED WEEK AGO. PT DENIES NAUSEA, VOMIT, DIARRHEA OR ANY OTHER COMPLAINTS. PT AOX4, BREATHING EVEN AND UNLABORED, SKIN WARM AND DRY. BED IN LOWEST POSITION, LOCKED, BED RAIL UPX1. PMH - HEP A ALLERGIES - NKA
--- NOTE | 2019-11-29 21:27 | NUR ---
Dr. Russell examining patient.
[2019-11-29] MEDS ORDERED: KETOROLAC 30 MG/ML VIAL IM ONE (21:35)
--- NOTE | 2019-11-29 21:52 | NUR ---
PT TAKEN TO XRAY
--- NOTE | 2019-11-29 22:05 | NUR ---
PT RETURN FROM XRAY
[2019-11-29 22:20] LABS: FREE T4 (FREE THYROXINE) 1.34 ng/dL (0.76-1.46); THYROID STIMULATING HORMONE 2.28 uIU/mL (0.34-3.74)
[2019-11-29 22:35] VITALS: BP 118/69
--- NOTE | 2019-11-29 22:35 | NUR ---
Patient discharged with v/s stable. Written and verbal after care instructions about soft tissue injury of neck given and explained. Patient alert, oriented and verbalized understanding of instructions. Ambulatory with steady gait. All questions addressed prior to discharge. ID band removed. Patient advised to follow up with PMD. Rx of tramadol given. Patient educated on indication of medication including possible reaction and side effects. Opportunity to ask questions provided and answered.
== END 2019-11-29 22:35 | disposition home or self-care (01) ==
LOC: MED 21:09
DX: M54.2 Cervicalgia (principal); M54.5 Low back pain; K75.89 Other specified inflammatory liver diseases; K21.9 Gastro-esophageal reflux disease without esophagitis; Z79.899 Other long term (current) drug therapy
CPT/HCPCS: 36415; 72040; 84439; 84443; 96372; 99284; J1885

== ENCOUNTER 2020-04-19 23:25 | Emergency (ER) | payer OTHER ==
[~2020-04-19] VITALS: Ht 167.6 cm; Wt 81.2 kg
[2020-04-19 23:29] VITALS: BP 140/72
--- NOTE | 2020-04-19 23:34 | NUR ---
pt ambulated to restroom w/ steady gait to provide urine sample.
--- NOTE | 2020-04-19 23:38 | NUR ---
29 Y/O MALE BIB SELF WITH C/O NON-RADIATING SHARP 6/10 LUQ ABD PAIN . PT STATES HES BEEN DRINKING AND NOW HIS LIVER IS HURTING. REPORTS DRINKING TWO BEERS THIS EVENING. VERBALIZES THAT THE PAIN HAS BEEN ON & OFF X 3 DAYS. REPORTS FEELING BLOATED AND DENIED HAVING ANY N/V/D AT THIS TIME. BUT REPORTS HAVING FELT NAUSEATED EARLIER DURING THE DAY. HE REPORTED TAKING OTC MEDS PRIOR TO ED VISIT (GAS-X AND PEPCID) WITH INEFFECTIVE RESULTS. BED LOCKED AND PLACED IN LOWEST POSITION. MEDHX: HEP A , IBS , GASTRITIS ALLX: NKA
--- NOTE | 2020-04-19 23:40 | NUR ---
DEMETRIO COLLECTED AND SENT TO RESIDENTIAL CAREGIVER ALEX.
--- NOTE | 2020-04-19 23:50 | NUR ---
LAB AT BEDSIDE.
--- NOTE | 2020-04-20 00:02 | NUR ---
ER MD MANNING AT BEDSIDE.
[2020-04-20 00:03] LABS: BASOPHILS % (AUTO) 0.5 % (0.0-2.0); EOSINOPHILS # (AUTO) 0.3 K/uL (0-0.4); EOSINOPHILS % (AUTO) 3.8 % (0.0-4.0); HEMATOCRIT 45.3 % (36-52); HEMOGLOBIN 14.9 g/dL (12.0-18.0); LYMPHOCYTES % (AUTO) 36.4 % (20.5-51.1); MEAN CORPUSCULAR HEMOGLOBIN 27 pg (27-31); MEAN CORPUSCULAR HGB CONC 33 g/dL (33-37); MEAN CORPUSCULAR VOLUME 82.6 fL (80-94); MONOCYTES # (AUTO) 0.7 K/uL (0.8-1.0); MONOCYTES % (AUTO) 8.3 % (1.7-9.3); NEUTROPHILS # (AUTO) 4.2 K/uL (1.8-7.7); PLATELET COUNT (AUTO) 222 K/uL (140-450); RED BLOOD CELL COUNT(AUTO) 5.48 MIL/uL (4.20-6.10); RED CELL DISTRIBUTION WIDTH 13.2 % (11.6-13.7); WHITE BLOOD COUNT (AUTO) 8.1 K/uL (4.8-10.8)
[2020-04-20 00:04] LABS: APPEARANCE,URINE CLEAR (CLEAR); BILIRUBIN,URINE NEGATIVE (NEGATIVE); BLOOD, URINE NEGATIVE (NEGATIVE); COLOR,URINE YELLOW (YELLOW); LEUKOCYTE ESTERASE ,URINE NEGATIVE (NEGATIVE); NITRITE, URINE NEGATIVE (NEGATIVE); PH,URINE 7.5 (5.0-9.0); UGLUCOSE NEGATIVE (NEGATIVE)
[2020-04-20] MEDS ORDERED: DICYCLOMINE HCL LIQUID 20 MG, ALUMINUM HYD/MAG/SIMETHICONE 30 ML, LIDOCAINE VISCOUS 2% ... PO ONE ×3 (00:05)
[2020-04-20] MEDS ORDERED: LIDOCAINE VISCOUS 2% 20 ML UDC ONE (00:08)
[2020-04-20] MEDS ORDERED: ALUMINUM HYD/MAG/SIMETHICONE 30 ML UDC ONE (00:08)
[2020-04-20] MEDS ORDERED: DICYCLOMINE HCL LIQUID 10 MG/5 ML UDC ONE (00:09)
[2020-04-20 00:16] LABS: ANION GAP 12.5 (8-16); CARBON DIOXIDE 29.1 mmol/L (21-32); CREATININE 1.4 mg/dL (0.6-1.3); POTASSIUM 3.6 mmol/L (3.5-5.1)
[2020-04-20 00:22] LABS: ALBUMIN 4.3 g/dL (3.4-5.0); TOTAL BILIRUBIN 0.3 mg/dL (0.0-1.0)
[2020-04-20 01:09] VITALS: BP 134/78
--- NOTE | 2020-04-20 01:09 | NUR ---
Patient discharged with v/s stable. Written and verbal after care instructions given and explained. Patient alert, oriented and verbalized understanding of instructions. Ambulatory with steady gait. All questions addressed prior to discharge. ID band removed. Patient advised to follow up with PMD. Rx of Mag-Al with Simethicone given. Patient educated on indication of medication including possible reaction and side effects. Opportunity to ask questions provided and answered.
== END 2020-04-20 01:09 | disposition home or self-care (01) ==
LOC: MED 23:25
DX: K29.70 Gastritis, unspecified, without bleeding (principal); K21.9 Gastro-esophageal reflux disease without esophagitis; Z79.899 Other long term (current) drug therapy
CPT/HCPCS: 36415; 80053; 81003; 82150; 83690; 85025; 99283

== ENCOUNTER 2020-06-02 02:08 | Emergency (ER) | payer OTHER ==
[~2020-06-02] VITALS: Ht 167.6 cm; Wt 77.1 kg
[2020-06-02 02:30] VITALS: BP 126/81
--- NOTE | 2020-06-02 02:33 | NUR ---
TO LOBBY A/W BED AMBULATORY
--- NOTE | 2020-06-02 03:00 | NUR ---
LEFT WITHOUT BEING SEEN
== END 2020-06-02 03:00 | disposition home or self-care (01) ==
LOC: MED 02:08
DX: R07.9 Chest pain, unspecified (principal); F41.9 Anxiety disorder, unspecified; F43.9 Reaction to severe stress, unspecified; Z53.21 Procedure and treatment not carried out due to patient leaving prior to being seen by health care provider
CPT/HCPCS: 93005; 99281

== ENCOUNTER 2020-06-28 12:25 | Emergency (ER) | payer OTHER ==
[~2020-06-28] VITALS: Ht 167.6 cm; Wt 76.2 kg
[2020-06-28 12:46] VITALS: BP 121/86
[2020-06-28 14:04] LABS: BASOPHILS % (AUTO) 0.4 % (0.0-2.0); EOSINOPHILS # (AUTO) 0.1 K/uL (0-0.4); EOSINOPHILS % (AUTO) 0.8 % (0.0-4.0); HEMATOCRIT 45.6 % (36-52); HEMOGLOBIN 15.1 g/dL (12.0-18.0); LYMPHOCYTES # (AUTO) 1.7 K/uL (2.0-11.5); LYMPHOCYTES % (AUTO) 16.2 % (20.5-51.1); MEAN CORPUSCULAR HEMOGLOBIN 27 pg (27-31); MEAN CORPUSCULAR HGB CONC 33 g/dL (33-37); MEAN CORPUSCULAR VOLUME 82.4 fL (80-94); MONOCYTES # (AUTO) 0.6 K/uL (0.8-1.0); MONOCYTES % (AUTO) 5.5 % (1.7-9.3); NEUTROPHILS # (AUTO) 8.1 K/uL (1.8-7.7); NEUTROPHILS % (AUTO) 77.1 % (42.2-75.2); PLATELET COUNT (AUTO) 186 K/uL (140-450); RED BLOOD CELL COUNT(AUTO) 5.53 MIL/uL (4.20-6.10); RED CELL DISTRIBUTION WIDTH 13.7 % (11.6-13.7); WHITE BLOOD COUNT (AUTO) 10.5 K/uL (4.8-10.8)
[2020-06-28 14:25] LABS: ALBUMIN 4.6 g/dL (3.4-5.0); ANION GAP 10.9 (8-16); CARBON DIOXIDE 30.1 mmol/L (21-32); TOTAL BILIRUBIN 0.6 mg/dL (0.0-1.0)
[2020-06-28 15:14] VITALS: BP 121/86
== END 2020-06-28 15:15 | disposition home or self-care (01) ==
LOC: MED 12:25
DX: I88.9 Nonspecific lymphadenitis, unspecified (principal); K65.0 Generalized (acute) peritonitis; K21.9 Gastro-esophageal reflux disease without esophagitis; Z79.899 Other long term (current) drug therapy
CPT/HCPCS: 36415; 80053; 81002; 83690; 85025; 99283

== ENCOUNTER 2020-08-23 14:52 | Emergency (ER) | payer OTHER ==
[~2020-08-23] VITALS: Ht 167.6 cm; Wt 76.2 kg
[2020-08-23 14:53] VITALS: BP 108/72
--- NOTE | 2020-08-23 15:02 | NUR ---
30 Y/O MALE BIBS with C/O ABD PAIN- EPIGASTRIC PAIN X3 DAYS. + N/V WITH LAST VOMITING EPIDOSE X1 HR AGO. DENIES DIARRHEA. PT STATED THAT HE HAS history of ACID REFLUX. PT RATES PAIN 6/10 NON RADIAITNG. PT TOOK OMEPRAZOLE, SUCRALFATE, PEPTO AND ALEJANDRO SELTZER WITH NO RELIEF. PT ALSO C/O OF ORTEGA, TOOK IBUPROFEN WITH SOME RELIEF. NKDA, PMH gastritis, states this episode feels different than before. A, A, O x 4, cooperative, in no acute distress. Gait steady. Room air respirations even and unlabored, VVS, HOB elevated. Awaiting evaluation by MD, will continue to monitor and assess.
--- NOTE | 2020-08-23 15:10 | NUR ---
Patient ambulated to washroom to void, gait steady. Urine sample obtained, dipped, charted, sent to lab.
[2020-08-23] MEDS ORDERED: OMEP40EC24 PO ×2 (15:11→15:23)
[2020-08-23] MEDS ORDERED: DICYCLOMINE HCL LIQUID 20 MG, ALUMINUM HYD/MAG/SIMETHICONE 30 ML, LIDOCAINE VISCOUS 2% ... PO ONE ×3 (15:20)
[2020-08-23] MEDS ORDERED: PSEU120T23 PO (15:23)
[2020-08-23] MEDS ORDERED: LIDOCAINE VISCOUS 2% 20 ML UDC ONE (15:27)
[2020-08-23] MEDS ORDERED: DICYCLOMINE HCL LIQUID 10 MG/5 ML UDC ONE (15:27)
[2020-08-23] MEDS ORDERED: ALUMINUM HYD/MAG/SIMETHICONE 30 ML UDC ONE (15:27)
--- NOTE | 2020-08-23 15:34 | NUR ---
Detailed report given to TRUNG Naidu, questions answered. Meds and orders reviewed.
--- NOTE | 2020-08-23 15:36 | NUR ---
RECEIVED REPORT FROM ALEX NINO. TRANSFER OF CARE AT THIS TIME.
[2020-08-23 15:51] VITALS: BP 108/72
--- NOTE | 2020-08-23 15:51 | NUR ---
Patient discharged with v/s stable. Written and verbal after care instructions given and explained. Patient alert, oriented and verbalized understanding of instructions. Ambulatory with steady gait. All questions addressed prior to discharge. ID band removed. Patient advised to follow up with PMD. Rx of omeprazole and pseudoephedrine given. Patient educated on indication of medication including possible reaction and side effects. Opportunity to ask questions provided and answered.
== END 2020-08-23 15:51 | disposition home or self-care (01) ==
LOC: MED 14:52
DX: K21.9 Gastro-esophageal reflux disease without esophagitis (principal); R09.81 Nasal congestion; Z79.899 Other long term (current) drug therapy
CPT/HCPCS: 81002; 99283

== ENCOUNTER 2020-09-26 20:27 | Emergency (ER) | payer OTHER ==
[~2020-09-26] VITALS: Ht 167.6 cm; Wt 80.7 kg
[~2020-09-26 20:27] MED LIST changes: +OMEP40EC24 PO; +PSEU120T23 PO
[2020-09-26 20:33] VITALS: BP 131/88
--- NOTE | 2020-09-26 20:33 | NUR ---
TO BED AMBULATORY
--- NOTE | 2020-09-26 20:55 | NUR ---
30 Y/O MALE CAME TO THE ED WITH COUGHING, RUNNY NOSE, WITH 6/10 THROAT PAIN THAT RADIATES TO CHEST AND NECK AREA. PT STATES THAT HE HAS A CLEAR DISCHARGE. PT HAS SMALL WHITE SPOTS ON LEFT BUCCAL AREA. PMH: HIGH CHOLESTEROL, COVID IN 05/2020 NKA
[2020-09-26] MEDS ORDERED: DEXAMETHASONE 10 MG/ML VIAL PO ONE (21:40)
[2020-09-26] MEDS ORDERED: KETOROLAC 30 MG/ML VIAL IM ONE (21:40)
[2020-09-26] MEDS ORDERED: ROBAC PO (21:42)
[2020-09-26 21:58] VITALS: BP 131/88
--- NOTE | 2020-09-26 21:58 | NUR ---
Patient discharged with v/s stable. Written and verbal after care instructions given and explained. Patient alert, oriented and verbalized understanding of instructions. Ambulatory with steady gait. All questions addressed prior to discharge. ID band removed. Patient advised to follow up with PMD. Rx of GUIFENESINE-CODEINE given. Patient educated on indication of medication including possible reaction and side effects. Opportunity to ask questions provided and answered.
== END 2020-09-26 21:58 | disposition home or self-care (01) ==
LOC: MED 20:27
DX: J02.9 Acute pharyngitis, unspecified (principal); K21.9 Gastro-esophageal reflux disease without esophagitis; E78.00 Pure hypercholesterolemia, unspecified; Z79.899 Other long term (current) drug therapy
CPT/HCPCS: 96372; 99283; J1100; J1885

== ENCOUNTER 2020-11-10 22:42 | Emergency (ER) | payer OTHER ==
[~2020-11-10] VITALS: Ht 167.6 cm; Wt 76.2 kg
[~2020-11-10 22:42] MED LIST changes: +ROBAC PO
[2020-11-10 23:03] VITALS: BP 109/67
--- NOTE | 2020-11-10 23:14 | NUR ---
30/M C/O EPIGASTRIC PAIN FOR ABOUT 2W. SHARP/BURNING PAIN 8/10 THAT DOES NOT RADIATE. PT HAS VOMITING BUT NO N/D. DENIES ANY FEVER OR CHILLS. PMH-GERD RX- OMEPRAZOLE NKA
--- NOTE | 2020-11-10 23:37 | NUR ---
Patient being evaluated by physician at bedside.
[2020-11-11] MEDS ORDERED: ONDANSETRON 4 MG ODT PO ONE (00:10)
[2020-11-11] MEDS ORDERED: PANTOPRAZOLE 40 MG TABEC PO ONE (00:10)
[2020-11-11] MEDS ORDERED: ALUMINUM HYD/MAG/SIMETHICONE 30 ML, DICYCLOMINE HCL LIQUID 20 MG, LIDOCAINE VISCOUS 2% ... PO ONE ×3 (00:10)
[2020-11-11] MEDS ORDERED: ALUMINUM HYD/MAG/SIMETHICONE 30 ML UDC ONE (00:33)
[2020-11-11] MEDS ORDERED: DICYCLOMINE HCL LIQUID 10 MG/5 ML UDC ONE (00:33)
[2020-11-11] MEDS ORDERED: LIDOCAINE VISCOUS 2% 20 ML UDC ONE (00:33)
--- NOTE | 2020-11-11 00:53 | NUR ---
RADIOLOGY AT BEDSIDE
[2020-11-11] MEDS ORDERED: MAGNESIUM CITRATE 300 ML BTL PO ONE (01:40)
[2020-11-11 02:05] VITALS: BP 109/67
== END 2020-11-11 02:04 | disposition home or self-care (01) ==
LOC: MED 22:42
DX: K29.70 Gastritis, unspecified, without bleeding (principal); K59.00 Constipation, unspecified; R11.2 Nausea with vomiting, unspecified; K21.9 Gastro-esophageal reflux disease without esophagitis; Z79.899 Other long term (current) drug therapy
CPT/HCPCS: 74018; 99284; Q0162

== ENCOUNTER 2021-01-07 02:24 | Emergency (ER) | payer OTHER ==
[~2021-01-07] VITALS: Ht 167.6 cm; Wt 76.2 kg
[2021-01-07 02:25] VITALS: BP 112/71
--- NOTE | 2021-01-07 02:25 | NUR ---
TO BED AMBULATORY
[2021-01-07] MEDS ORDERED: MORPHINE SULFATE 4 MG/ML SYR IM ONE (02:40)
[2021-01-07] MEDS ORDERED: ONDANSETRON 4 MG ODT PO ONE (02:40)
--- NOTE | 2021-01-07 02:45 | NUR ---
PT BIB SELF FOR C/O 03/27 LEFT SIDED ABDOMINAL PAIN X 3 DAYS. PT REPORTS HE ATE SOMETHING 3 DAYS AGO THAT CAUSED STOMACH DISCOMFORT AND IT HAS GOTTEN PROGRESSIVELY WORSE. PT REPORTS + DIARRHEA, WITH HX OF IBS. PT DENIES N/V, FEVER, CHILLS, CP OR SOB. LEFT SIDE OF ABOMDEN IS TENDER TO TOUCH, FLAT AND SOFT. PAIN IS NONRADIATING. MED HX: GASTRITIS, IBS ALLERGIES: NKA
--- NOTE | 2021-01-07 02:54 | NUR ---
XRAY AT BEDSIDE.
--- NOTE | 2021-01-07 03:05 | NUR ---
URINE WALKED TO LAB BY SINGH GILBERT.
[2021-01-07 03:09] LABS: APPEARANCE,URINE CLEAR (CLEAR); BILIRUBIN,URINE NEGATIVE (NEGATIVE); BLOOD, URINE NEGATIVE (NEGATIVE); COLOR,URINE YELLOW (YELLOW); LEUKOCYTE ESTERASE ,URINE NEGATIVE (NEGATIVE); NITRITE, URINE NEGATIVE (NEGATIVE); UGLUCOSE NEGATIVE (NEGATIVE)
--- NOTE | 2021-01-07 03:50 | NUR ---
LAB AT BEDSIDE.
[2021-01-07 04:09] LABS: BASOPHILS % (AUTO) 0.3 % (0.0-2.0); EOSINOPHILS # (AUTO) 0.2 K/uL (0-0.4); EOSINOPHILS % (AUTO) 1.8 % (0.0-4.0); HEMATOCRIT 41.1 % (36-52); HEMOGLOBIN 13.5 g/dL (12.0-18.0); LYMPHOCYTES # (AUTO) 1.8 K/uL (2.0-11.5); LYMPHOCYTES % (AUTO) 19.3 % (20.5-51.1); MEAN CORPUSCULAR HEMOGLOBIN 27 pg (27-31); MEAN CORPUSCULAR HGB CONC 33 g/dL (33-37); MEAN CORPUSCULAR VOLUME 82.7 fL (80-94); MONOCYTES # (AUTO) 0.6 K/uL (0.8-1.0); MONOCYTES % (AUTO) 6.6 % (1.7-9.3); NEUTROPHILS # (AUTO) 6.9 K/uL (1.8-7.7); PLATELET COUNT (AUTO) 165 K/uL (140-450); RED BLOOD CELL COUNT(AUTO) 4.97 MIL/uL (4.20-6.10); RED CELL DISTRIBUTION WIDTH 13.4 % (11.6-13.7); WHITE BLOOD COUNT (AUTO) 9.6 K/uL (4.8-10.8)
[2021-01-07 04:15] LABS: ALBUMIN 4.3 g/dL (3.4-5.0); ANION GAP 9.6 (8-16); CREATININE 0.9 mg/dL (0.6-1.3); POTASSIUM 3.6 mmol/L (3.5-5.1); TOTAL BILIRUBIN 0.3 mg/dL (0.0-1.0)
[2021-01-07] MEDS ORDERED: MIRABULK PO (04:26)
[2021-01-07] MEDS ORDERED: HYOS-60 SL (04:26)
--- NOTE | 2021-01-07 04:37 | NUR ---
ERMD AT BEDSIDE.
--- NOTE | 2021-01-07 05:25 | NUR ---
Patient discharged with v/s stable. Written and verbal after care instructions given and explained. Patient alert, oriented and verbalized understanding of instructions. Ambulatory with steady gait. All questions addressed prior to discharge. ID band removed. Patient advised to follow up with PMD. Rx of LEVSIN given. Patient educated on indication of medication including possible reaction and side effects. Opportunity to ask questions provided and answered.
== END 2021-01-07 05:25 | disposition home or self-care (01) ==
LOC: MED 02:24
DX: K58.9 Irritable bowel syndrome, unspecified (principal); K21.9 Gastro-esophageal reflux disease without esophagitis; Z79.899 Other long term (current) drug therapy
CPT/HCPCS: 36415; 74018; 80053; 81003; 85025; 96372; 99284; J2270; Q0162

== ENCOUNTER 2021-01-08 09:23 | Emergency (ER) | payer OTHER ==
[~2021-01-08] VITALS: Ht 167.6 cm; Wt 77.2 kg
[~2021-01-08 09:23] MED LIST changes: +HYOS-60 SL
[2021-01-08 09:27] VITALS: BP 107/72
--- NOTE | 2021-01-08 09:33 | NUR ---
pt ambulated to bed 09.
--- NOTE | 2021-01-08 09:51 | NUR ---
EVALUATING PT BEDSIDE
--- NOTE | 2021-01-08 09:51 | NUR ---
30 Y/O MALE C/O ABDOMINAL PAIN LLQ X3 DAYS. PT WAS SEEN HERE YESTERDAY WITH SAME COMPLAINT AND TOOK MEDICATION PRESCRIBED BUT THE PAIN IS STILL THERE. DENIES N/V. +DIARRHEA. PT STATES HE WAS D/C LAST NIGHT AND FELT OKAY, BUT WOKE UP THIS AM WITH THE PAIN WORSE THAN YESTERDAY. PMH:HUMBERTO SOLARES
[2021-01-08] MEDS ORDERED: NACL 0.9% 1,000 ML IV ONE (09:55)
[2021-01-08] MEDS ORDERED: KETOROLAC 15 MG/ML VIAL IVP ONE (09:55)
[2021-01-08 10:11] LABS: BASOPHILS % (AUTO) 0.3 % (0.0-2.0); EOSINOPHILS # (AUTO) 0.1 K/uL (0-0.4); EOSINOPHILS % (AUTO) 1.4 % (0.0-4.0); HEMATOCRIT 41.7 % (36-52); HEMOGLOBIN 13.8 g/dL (12.0-18.0); LYMPHOCYTES # (AUTO) 1.7 K/uL (2.0-11.5); MEAN CORPUSCULAR HEMOGLOBIN 27 pg (27-31); MEAN CORPUSCULAR HGB CONC 33 g/dL (33-37); MEAN CORPUSCULAR VOLUME 82.6 fL (80-94); MONOCYTES # (AUTO) 0.5 K/uL (0.8-1.0); MONOCYTES % (AUTO) 7.7 % (1.7-9.3); NEUTROPHILS # (AUTO) 4.3 K/uL (1.8-7.7); NEUTROPHILS % (AUTO) 64.6 % (42.2-75.2); PLATELET COUNT (AUTO) 161 K/uL (140-450); RED BLOOD CELL COUNT(AUTO) 5.04 MIL/uL (4.20-6.10); RED CELL DISTRIBUTION WIDTH 13.5 % (11.6-13.7); WHITE BLOOD COUNT (AUTO) 6.6 K/uL (4.8-10.8)
[2021-01-08 10:27] LABS: ALBUMIN 3.8 g/dL (3.4-5.0); ANION GAP 9.2 (8-16); CARBON DIOXIDE 28.5 mmol/L (21-32); CREATININE 0.9 mg/dL (0.6-1.3); POTASSIUM 3.7 mmol/L (3.5-5.1); TOTAL BILIRUBIN 0.5 mg/dL (0.0-1.0)
--- NOTE | 2021-01-08 11:04 | NUR ---
IV removed, catheter intact and site benign. Applied folded 4x4 gauze and tape to stop bleeding.
== END 2021-01-08 11:05 | disposition home or self-care (01) ==
LOC: MED 09:23
DX: R10.9 Unspecified abdominal pain (principal); K21.9 Gastro-esophageal reflux disease without esophagitis; Z79.899 Other long term (current) drug therapy
CPT/HCPCS: 36415; 80053; 81002; 83615; 83690; 85025; 96361; 96374; 99283; J1885; J7030

== ENCOUNTER 2021-01-18 18:02 | Emergency (ER) | payer OTHER ==
[~2021-01-18] VITALS: Ht 167.6 cm; Wt 76.2 kg
[2021-01-18 18:47] VITALS: BP 103/75
--- NOTE | 2021-01-18 19:30 | NUR ---
PT TAKEN TO BED 9
--- NOTE | 2021-01-18 19:45 | NUR ---
PATIENT PRESENTS TO ED WITH CP AFTER STRESSFUL NEWS FROM FAMILY 2 DAYS AGO . PT STATES HAS HAD INTERMITTENT CHEST PRESSURE WITH NAUSEA AND FATIGUE EVER SINCE HE HAD THAT STRESSFUL NEWS 2 DAYS AGO . DENIES V/D; SKIN IS PINK/WARM/DRY; AAOX4 WITH EVEN AND STEADY GAIT; ; HR EVEN AND REGULAR; PT DENIES ANY FEVER, SOB, OR COUGH AT THIS TIME; PATIENT STATES PAIN OF 3/10 AT THIS TIME; VSS; PATIENT POSITIONED FOR COMFORT; HOB ELEVATED; BEDRAILS UP X2; BED DOWN. ER MD MADE AWARE OF PT STATUS.
[2021-01-18] MEDS: LORazepam 1 MG TAB PO ONE (20:25)
[2021-01-18] MEDS ORDERED: HYDR25CA1 PO (20:47)
[2021-01-18 21:04] VITALS: BP 110/71
--- NOTE | 2021-01-18 21:06 | NUR ---
DCD HOME WITH FAMILY AFTER CARE PROVIDED AND RX SENT TO HIS PHARMACY. PT IS AWAKE ALERTX3 AMBULATORY STATES HE FEELS BETTER
== END 2021-01-18 21:06 | disposition home or self-care (01) ==
LOC: MED 18:02
DX: F41.9 Anxiety disorder, unspecified (principal); M54.2 Cervicalgia; R42 Dizziness and giddiness; K21.9 Gastro-esophageal reflux disease without esophagitis; Z79.899 Other long term (current) drug therapy
CPT/HCPCS: 71045; 93005; 99283

== ENCOUNTER 2021-06-12 17:24 | Emergency (ER) | payer OTHER ==
[~2021-06-12] VITALS: Ht 167.6 cm; Wt 72.6 kg
[~2021-06-12 17:24] MED LIST changes: +BENZ-196 PO; +BENZ1LOZ98 PO; +HYDR25CA1 PO
[2021-06-12 17:39] VITALS: BP 100/70
--- NOTE | 2021-06-12 17:42 | NUR ---
YASEMIN LF C/O COUGH, 12/25 BODY ACH, CHILLS X YESTERDAY.VSS. Addendum: 06/12/21 at 1745 by [email or web address] Amendment undone in EDM - 06/12/21 at 174 by [email or web address] VO,MITED AFTER TAKING DAYQUIL TODAY. ORTEGA: GASTRITIS. Addendum: 06/12/21 at 174 by [email or web address] VOMITED AFTER TAKING DAYQUIL TODAY. ORTEGA: GASTRITIS.
--- NOTE | 2021-06-12 17:45 | NUR ---
TENT1
--- NOTE | 2021-06-12 17:50 | NUR ---
COVID NORMA, FLU SWABS DONE.
[2021-06-12] MEDS ORDERED: KETOROLAC 30 MG/ML VIAL IM ONE (18:50)
[2021-06-12] MEDS ORDERED: DICYCLOMINE HCL LIQUID 20 MG, ALUMINUM HYD/MAG/SIMETHICONE 30 ML, LIDOCAINE VISCOUS 2% ... PO ONE ×3 (18:50)
[2021-06-12] MEDS ORDERED: NAPR-54 PO (18:52)
[2021-06-12] MEDS ORDERED: ONDA-188 SL (18:52)
[2021-06-12] MEDS ORDERED: ROBAC PO (18:52)
[2021-06-12] MEDS ORDERED: ALUMINUM HYD/MAG/SIMETHICONE 30 ML UDC ONE (19:09)
[2021-06-12] MEDS ORDERED: DICYCLOMINE HCL LIQUID 10 MG/5 ML UDC ONE (19:09)
[2021-06-12 19:11] VITALS: BP 100/70
== END 2021-06-12 19:11 | disposition home or self-care (01) ==
LOC: MED 17:24
DX: U07.1 COVID-19 (principal); K29.70 Gastritis, unspecified, without bleeding; K21.9 Gastro-esophageal reflux disease without esophagitis; E03.9 Hypothyroidism, unspecified; Z79.899 Other long term (current) drug therapy
CPT/HCPCS: 87426; 87804; 96372; 99283; J1885

== ENCOUNTER → 2021-06-17 | Emergency (ER) | payer OTHER ==
[~2021-06-17] VITALS: Ht 167.6 cm; Wt 72.6 kg
[~2021-06-17] MED LIST changes: +NAPR-54 PO; +ONDA-188 SL
[2021-06-17 21:13] VITALS: BP 115/72
--- NOTE | 2021-06-17 21:16 | NUR ---
TO LOBBY A/W BED AMBULATORY
== END | disposition left against medical advice (07) ==
LOC: MED 18:38
DX: Z53.21 Procedure and treatment not carried out due to patient leaving prior to being seen by health care provider (principal); R10.13 Epigastric pain; R11.10 Vomiting, unspecified; R42 Dizziness and giddiness
CPT/HCPCS: 99281

== ENCOUNTER 2021-10-26 21:20 | Emergency (ER) | payer OTHER ==
[~2021-10-26] VITALS: Ht 167.6 cm; Wt 70.8 kg
[~2021-10-26 21:20] MED LIST changes: +BENZ-300 PO; -BENZ1LOZ98 PO; +OMEP-303 PO; -OMEP20TC10 PO
[2021-10-26 21:27] VITALS: BP 119/76
--- NOTE | 2021-10-26 21:38 | NUR ---
PT AMBULATED TO BED 7
--- NOTE | 2021-10-26 22:15 | NUR ---
ERMD at bedside for examination
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
--- NOTE | 2021-10-26 22:22 | NUR ---
HEADACHE PAIN IS INTERMITTENT AND SHARP 7/10, BUT STATED IT IS TOLERABLE AT THIS TIME. REQUESTED NO MEDICATION. MD AWARE. ALL NEEDS MET
--- NOTE | 2021-10-26 22:34 | NUR ---
LAB AT BEDSIDE
--- NOTE | 2021-10-26 22:35 | NUR ---
SWAB COLLECTED AND HANDED TO LAB
[2021-10-26 22:44] LABS: BASOPHILS % (AUTO) 0.3 % (0.0-2.0); EOSINOPHILS # (AUTO) 0.2 K/uL (0-0.4); EOSINOPHILS % (AUTO) 2.5 % (0.0-4.0); HEMATOCRIT 43.4 % (36-52); HEMOGLOBIN 14.5 g/dL (12.0-18.0); LYMPHOCYTES # (AUTO) 2.3 K/uL (2.0-11.5); MEAN CORPUSCULAR HEMOGLOBIN 28 pg (27-31); MEAN CORPUSCULAR HGB CONC 33 g/dL (33-37); MEAN CORPUSCULAR VOLUME 82.5 fL (80-94); MONOCYTES # (AUTO) 0.4 K/uL (0.8-1.0); MONOCYTES % (AUTO) 5.6 % (1.7-9.3); NEUTROPHILS # (AUTO) 4.5 K/uL (1.8-7.7); NEUTROPHILS % (AUTO) 60.6 % (42.2-75.2); PLATELET COUNT (AUTO) 244 K/uL (140-450); RED BLOOD CELL COUNT(AUTO) 5.26 MIL/uL (4.20-6.10); RED CELL DISTRIBUTION WIDTH 12.9 % (11.6-13.7); WHITE BLOOD COUNT (AUTO) 7.4 K/uL (4.8-10.8)
[2021-10-26 23:05] VITALS: BP 119/76
--- NOTE | 2021-10-26 23:05 | NUR ---
Patient discharged with v/s stable. Written and verbal after care instructions given on cervical sprain and explained. Ambulatory with steady gait. All questions addressed prior to discharge. Advised to follow up with PMD.
--- NOTE | 2021-10-26 23:08 | NUR ---
The patient's care was reviewed and supervised by Soni Cheung RN. Patient chart checked.
== END 2021-10-26 23:00 | disposition home or self-care (01) ==
LOC: MED 21:20
DX: M54.2 Cervicalgia (principal); Z20.822 Contact with and (suspected) exposure to COVID-19; R42 Dizziness and giddiness; H92.09 Otalgia, unspecified ear; K21.9 Gastro-esophageal reflux disease without esophagitis; E03.9 Hypothyroidism, unspecified; Z79.899 Other long term (current) drug therapy
CPT/HCPCS: 36415; 85025; 99283

== ENCOUNTER 2021-12-26 03:55 | Emergency (ER) | payer OTHER ==
[~2021-12-26] VITALS: Ht 167.6 cm; Wt 72.6 kg
[2021-12-26 04:30] VITALS: BP 142/78
--- NOTE | 2021-12-26 04:33 | NUR ---
TO LOBBY A/W BED AMBULATORY
--- NOTE | 2021-12-26 04:52 | NUR ---
Patient ambulated to bed 7
--- NOTE | 2021-12-26 04:53 | NUR ---
Patient BIB by family from home. C/O bilateral ears pain x 3 days. Patient reported, had bilateral ear pain, pressure for 3 days, radiate to head, neck, 7/10, with dizziness, Patient seen by PMD for same symptoms, Rx Antibiotics, relief and then pain came back, Patient will have appointment with ENT next week.
--- NOTE | 2021-12-26 04:57 | NUR ---
Dr. Gunn examining patient.
[2021-12-26] MEDS ORDERED: KETOROLAC 30 MG/ML VIAL IM ONE (05:05)
[2021-12-26] MEDS ORDERED: ONDANSETRON 4 MG ODT SL ONE (05:05)
[2021-12-26] MEDS ORDERED: MECLIZINE 25 MG TAB PO ONE (05:05)
--- NOTE | 2021-12-26 05:15 | NUR ---
COVID-19 and flu swabs collected and sent to lab.
[2021-12-26] MEDS ORDERED: SUD30 PO (05:50)
[2021-12-26 06:15] VITALS: BP 132/69
--- NOTE | 2021-12-26 06:15 | NUR ---
Patient discharged with v/s stable. Written and verbal after care instructions given and explained for Influenza, Adult. Patient alert, oriented and verbalized understanding of instructions. Ambulatory with steady gait. All questions addressed prior to discharge. ID band removed. Patient advised to follow up with PMD. Rx of Sudafed given. Patient educated on indication of medication including possible reaction and side effects. Opportunity to ask questions provided and answered.
== END 2021-12-26 06:15 | disposition home or self-care (01) ==
LOC: MED 03:55
DX: J10.1 Influenza due to other identified influenza virus with other respiratory manifestations (principal); Z20.822 Contact with and (suspected) exposure to COVID-19; K29.70 Gastritis, unspecified, without bleeding; E03.9 Hypothyroidism, unspecified
CPT/HCPCS: 87426; 87804; 96372; 99283; J1885; J8597; Q0162

== ENCOUNTER 2022-05-04 17:47 | Emergency (ER) | payer OTHER ==
[~2022-05-04] VITALS: Ht 160 cm; Wt 77.6 kg
[~2022-05-04 17:47] MED LIST changes: +SUD30 PO
[2022-05-04 18:05] VITALS: BP 121/75
[2022-05-04] MEDS ORDERED: DICYCLOMINE HCL LIQUID 20 MG, ALUMINUM HYD/MAG/SIMETHICONE 30 ML, LIDOCAINE VISCOUS 2% ... PO ONE ×3 (18:50)
[2022-05-04] MEDS ORDERED: LORazepam 1 MG TAB PO ONE (19:30)
--- NOTE | 2022-05-04 19:30 | NUR ---
medicated as per PAs order , tolerated well.
[2022-05-04 19:33] LABS: BASOPHILS % (AUTO) 0.2 % (0.0-2.0); EOSINOPHILS # (AUTO) 0.1 K/uL (0-0.4); EOSINOPHILS % (AUTO) 0.7 % (0.0-4.0); HEMATOCRIT 43.3 % (36-52); HEMOGLOBIN 14.2 g/dL (12.0-18.0); LYMPHOCYTES # (AUTO) 1.7 K/uL (2.0-11.5); LYMPHOCYTES % (AUTO) 20.5 % (20.5-51.1); MEAN CORPUSCULAR HEMOGLOBIN 27 pg (27-31); MEAN CORPUSCULAR HGB CONC 33 g/dL (33-37); MEAN CORPUSCULAR VOLUME 82.7 fL (80-94); MONOCYTES # (AUTO) 0.4 K/uL (0.8-1.0); MONOCYTES % (AUTO) 5.2 % (1.7-9.3); NEUTROPHILS # (AUTO) 6.1 K/uL (1.8-7.7); NEUTROPHILS % (AUTO) 73.4 % (42.2-75.2); PLATELET COUNT (AUTO) 223 K/uL (140-450); RED BLOOD CELL COUNT(AUTO) 5.23 MIL/uL (4.20-6.10); RED CELL DISTRIBUTION WIDTH 12.8 % (11.6-13.7); WHITE BLOOD COUNT (AUTO) 8.4 K/uL (4.8-10.8)
[2022-05-04] MEDS ORDERED: ALUMINUM HYD/MAG/SIMETHICONE 30 ML UDC ONE (19:35)
[2022-05-04] MEDS ORDERED: DICYCLOMINE HCL LIQUID 10 MG/5 ML UDC ONE (19:36)
[2022-05-04 19:40] LABS: ANION GAP 11.9 (8-16); CARBON DIOXIDE 29.6 mmol/L (21-32); CREATININE 0.8 mg/dL (0.6-1.3); POTASSIUM 3.5 mmol/L (3.5-5.1)
[2022-05-04] MEDS ORDERED: ATI.5 PO (19:50)
[2022-05-04 20:05] VITALS: BP 119/80
== END 2022-05-04 20:05 | disposition home or self-care (01) ==
LOC: MED 17:47
DX: R51.9 Headache, unspecified (principal); R06.02 Shortness of breath; R55 Syncope and collapse; F41.0 Panic disorder [episodic paroxysmal anxiety]; K29.50 Unspecified chronic gastritis without bleeding; K21.9 Gastro-esophageal reflux disease without esophagitis; E03.9 Hypothyroidism, unspecified; Z79.899 Other long term (current) drug therapy
CPT/HCPCS: 36415; 71045; 80048; 85025; 93005; 99285

== ENCOUNTER 2023-01-10 20:04 | Emergency (ER) | payer OTHER ==
[~2023-01-10] VITALS: Ht 167.6 cm; Wt 80.3 kg
[~2023-01-10 20:04] MED LIST changes: +ATI.5 PO
[2023-01-10 20:11] VITALS: BP 139/90; PULSE 87; RESP 17; TEMP 98.2; O2SAT 98
--- NOTE | 2023-01-10 20:11 | NUR ---
TO BED AMBULATORY
--- NOTE | 2023-01-10 20:34 | NUR ---
Dr. Gilmore examining patient.
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
[2023-01-10] MEDS ORDERED: methocarbamoL 500 MG TAB PO ONE (20:45)
[2023-01-10] MEDS ORDERED: LIDOCAINE 5% 1 EA PATCH TP ONE (20:45)
[2023-01-10] MEDS ORDERED: KETOROLAC 30 MG/ML VIAL IM ONE (20:45)
[2023-01-10 21:01] VITALS: O2SAT 98
[2023-01-10] MEDS ORDERED: CYCL-711 PO (21:48)
[2023-01-10] MEDS ORDERED: IBUP-2213 PO (21:48)
[2023-01-10] MEDS ORDERED: LID5T TP (21:48)
--- NOTE | 2023-01-10 22:11 | NUR ---
Patient discharged with v/s stable. Written and verbal after care instructions given and explained. Patient alert, oriented and verbalized understanding of instructions. Ambulatory with steady gait. All questions addressed prior to discharge. ID band removed. Patient advised to follow up with PMD. Rx of FLEXERIL, IBUPROFEN, AND LIDODERM PATCH given. Opportunity to ask questions provided and answered.
== END 2023-01-10 22:11 | disposition home or self-care (01) ==
LOC: MED 20:04
DX: S39.012A Strain of muscle, fascia and tendon of lower back, initial encounter (principal); M54.42 Lumbago with sciatica, left side; K21.9 Gastro-esophageal reflux disease without esophagitis; E03.9 Hypothyroidism, unspecified; Z79.899 Other long term (current) drug therapy; Z79.1 Long term (current) use of non-steroidal anti-inflammatories (NSAID); V89.2XXA Person injured in unspecified motor-vehicle accident, traffic, initial encounter; Y93.89 Activity, other specified; Y92.410 Unspecified street and highway as the place of occurrence of the external cause; Y99.8 Other external cause status
CPT/HCPCS: 96372; 99283; J1885

== ENCOUNTER 2023-07-14 09:34 | Emergency (ER) | payer OTHER ==
[~2023-07-14] VITALS: Ht 167.6 cm; Wt 82.6 kg
[~2023-07-14 09:34] MED LIST changes: +CYCL-711 PO; +IBUP-2213 PO; +LID5T TP
[2023-07-14 09:49] VITALS: BP 128/78; PULSE 99; RESP 18; TEMP 98.5; O2SAT 96
[2023-07-14 10:17] LABS: BASOPHILS % (AUTO) 0.3 % (0.0-2.0); EOSINOPHILS # (AUTO) 0.1 K/uL (0-0.4); EOSINOPHILS % (AUTO) 1.1 % (0.0-4.0); HEMATOCRIT 44.2 % (36-52); HEMOGLOBIN 14.8 g/dL (12.0-18.0); LYMPHOCYTES # (AUTO) 1.6 K/uL (2.0-11.5); LYMPHOCYTES % (AUTO) 13.5 % (20.5-51.1); MEAN CORPUSCULAR HEMOGLOBIN 28 pg (27-31); MEAN CORPUSCULAR HGB CONC 34 g/dL (33-37); MEAN CORPUSCULAR VOLUME 82.9 fL (80-94); MONOCYTES # (AUTO) 0.8 K/uL (0.8-1.0); MONOCYTES % (AUTO) 6.6 % (1.7-9.3); NEUTROPHILS # (AUTO) 9.4 K/uL (1.8-7.7); NEUTROPHILS % (AUTO) 78.5 % (42.2-75.2); PLATELET COUNT (AUTO) 213 K/uL (140-450); RED BLOOD CELL COUNT(AUTO) 5.33 MIL/uL (4.20-6.10); RED CELL DISTRIBUTION WIDTH 13.5 % (11.6-13.7)
[2023-07-14 10:33] LABS: ALBUMIN 3.8 g/dL (3.4-5.0); CALCIUM 8.5 mg/dL (8.5-10.1); CARBON DIOXIDE 28.8 mmol/L (21-32); CREATININE 0.9 mg/dL (0.6-1.3); POTASSIUM 3.8 mmol/L (3.5-5.1); TOTAL BILIRUBIN 0.5 mg/dL (0.0-1.0); TOTAL PROTEIN, SERUM 8.7 g/dL (6.4-8.2)
[2023-07-14] MEDS ORDERED: FAMOTIDINE 20 MG/2 ML VIAL IVP ONE (11:00)
[2023-07-14] MEDS ORDERED: DICYCLOMINE HCL LIQUID 20 MG, ALUMINUM HYD/MAG/SIMETHICONE 30 ML, LIDOCAINE VISCOUS 2% ... PO ONE ×3 (11:00)
[2023-07-14] MEDS ORDERED: ALUMINUM HYD/MAG/SIMETHICONE 30 ML UDC ONE (11:02)
[2023-07-14] MEDS ORDERED: DICYCLOMINE HCL LIQUID 10 MG/5 ML UDC ONE (11:02)
[2023-07-14] MEDS ORDERED: AMPICILLIN/SULBACTAM 3 GM in NACL 0.9% 100 ML IV ONE (12:40)
[2023-07-14] MEDS ORDERED: AMPICILLIN/SULBACTAM 3 GM VIAL ONE (13:15)
[2023-07-14 14:20] LABS: INR 0.99 (0.8-1.2); PROTHROMBIN TIME 10.4 secs (10.8-13.4)
[2023-07-14 15:15] VITALS: BP 119/79; PULSE 106; RESP 22; TEMP 99; O2SAT 97
== END 2023-07-14 15:15 | disposition short-term general hospital (02) ==
LOC: MED 09:34
DX: K37 Unspecified appendicitis (principal); J18.9 Pneumonia, unspecified organism; E03.9 Hypothyroidism, unspecified; K21.9 Gastro-esophageal reflux disease without esophagitis; Z79.899 Other long term (current) drug therapy
CPT/HCPCS: 36415; 71045; 74177; 80053; 83690; 85025; 85610; 87040; 93005; 96365; 96375; 99285; J0295; J3490; Q9967

== ENCOUNTER 2023-08-26 14:32 | Emergency (ER) | payer OTHER ==
[~2023-08-26] VITALS: Ht 167.6 cm; Wt 82.6 kg
[2023-08-26 15:20] VITALS: BP 118/79; PULSE 138; RESP 20; TEMP 98.9; O2SAT 99
[2023-08-26] MEDS ORDERED: ALUMINUM HYD/MAG/SIMETHICONE 30 ML UDC ONE (15:45)
[2023-08-26] MEDS ORDERED: DICYCLOMINE HCL LIQUID 10 MG/5 ML UDC ONE (15:45)
[2023-08-26] MEDS: NACL 0.9% 1,000 ML IV ONE (15:47)
[2023-08-26] MEDS: ONDANSETRON 4 MG/2 ML VIAL IVP ONE (15:48)
[2023-08-26] MEDS: DICYCLOMINE HCL LIQUID 20 MG, ALUMINUM HYD/MAG/SIMETHICONE 30 ML, LIDOCAINE VISCOUS 2% ... PO ONE (15:51)
[2023-08-26] MEDS ORDERED: IBUP-2213 PO (16:00)
[2023-08-26] MEDS ORDERED: ONDA8TAB87 PO (16:00)
[2023-08-26] MEDS ORDERED: OMEP40EC23 PO (16:00)
[2023-08-26] MEDS: KETOROLAC 30 MG/ML VIAL IVP ONE (16:34)
[2023-08-26 17:00] VITALS: BP 125/72; PULSE 72; RESP 16; TEMP 98; O2SAT 99
== END 2023-08-26 17:00 | disposition home or self-care (01) ==
LOC: MED 14:32
DX: R10.13 Epigastric pain (principal); R11.2 Nausea with vomiting, unspecified; R19.7 Diarrhea, unspecified; K21.9 Gastro-esophageal reflux disease without esophagitis; E03.9 Hypothyroidism, unspecified; Z79.899 Other long term (current) drug therapy
CPT/HCPCS: 96361; 96374; 96375; 99284; J1885; J2405; J7030

== ENCOUNTER 2024-03-13 09:38 | Emergency (ER) | payer MEDICAID, OTHER ==
[~2024-03-13] VITALS: Ht 167.6 cm; Wt 76.2 kg
[~2024-03-13 09:38] MED LIST changes: -ATI.5 PO; -BENZ-196 PO; -BENZ-300 PO; -CYCL-711 PO; -HYDR25CA1 PO; -HYOS-60 SL; -LID5T TP; -NAPR-54 PO; -OMEP-303 PO; +OMEP40EC23 PO; -OMEP40EC24 PO; -ONDA-188 SL; +ONDA8TAB87 PO; -PSEU120T23 PO; -ROBAC PO; -SUD30 PO
[2024-03-13 10:03] VITALS: BP 137/92; PULSE 55; RESP 16; TEMP 97.8; O2SAT 96
[2024-03-13 10:16] VITALS: BP 127/89; PULSE 109; RESP 18; TEMP 99; O2SAT 97
[2024-03-13 12:14] LABS: FLU A ANTIGEN negative (NEGATIVE); FLU B ANTIGEN NEGATIVE (NEGATIVE)
[2024-03-13] MEDS ORDERED: PROM118S6 PO (12:22)
[2024-03-13] MEDS ORDERED: ONDA-188 SL (12:22)
[2024-03-13] MEDS: IBUPROFEN 600 MG TAB PO ONE (12:23)
[2024-03-13 12:46] VITALS: BP 127/86; PULSE 100; RESP 20; O2SAT 97
== END 2024-03-13 12:46 | disposition home or self-care (01) ==
LOC: MED 09:38
DX: J06.9 Acute upper respiratory infection, unspecified (principal); Z20.822 Contact with and (suspected) exposure to COVID-19; K21.9 Gastro-esophageal reflux disease without esophagitis; E03.9 Hypothyroidism, unspecified; Z79.899 Other long term (current) drug therapy
CPT/HCPCS: 99283

== ENCOUNTER 2024-04-17 13:51 | Emergency (ER) | payer MEDICAID ==
[~2024-04-17] VITALS: Ht 167.6 cm; Wt 79.4 kg
[~2024-04-17 13:51] MED LIST changes: +ONDA-188 SL; +PROM118S6 PO
[2024-04-17 14:10] VITALS: BP 126/55; PULSE 68; RESP 16; TEMP 98.7; O2SAT 98
[2024-04-17] MEDS: ONDANSETRON 4 MG ODT PO ONE (14:52)
[2024-04-17 15:13] LABS: APPEARANCE,URINE CLEAR (CLEAR); BILIRUBIN,URINE NEGATIVE (NEGATIVE); BLOOD, URINE NEGATIVE (NEGATIVE); COLOR,URINE YELLOW (YELLOW); LEUKOCYTE ESTERASE ,URINE NEGATIVE (NEGATIVE); NITRITE, URINE NEGATIVE (NEGATIVE); PH,URINE 6.5 (5.0-9.0); PROTEIN,URINE NEGATIVE (NEGATIVE); UGLUCOSE NEGATIVE (NEGATIVE); UROBILINOGEN,URINE 0.2 EU/dL (0.2 - 1)
[2024-04-17 16:09] LABS: BASOPHILS % (AUTO) 0.2 % (0.0-2.0); EOSINOPHILS # (AUTO) 0.1 K/uL (0-0.4); EOSINOPHILS % (AUTO) 1.6 % (0.0-4.0); HEMATOCRIT 46.9 % (36-52); HEMOGLOBIN 15.3 g/dL (12.0-18.0); LYMPHOCYTES # (AUTO) 1.9 K/uL (2.0-11.5); LYMPHOCYTES % (AUTO) 22.2 % (20.5-51.1); MEAN CORPUSCULAR HEMOGLOBIN 27 pg (27-31); MEAN CORPUSCULAR HGB CONC 33 g/dL (33-37); MEAN CORPUSCULAR VOLUME 84.2 fL (80-94); MONOCYTES # (AUTO) 0.7 K/uL (0.8-1.0); MONOCYTES % (AUTO) 8.6 % (1.7-9.3); NEUTROPHILS # (AUTO) 5.7 K/uL (1.8-7.7); NEUTROPHILS % (AUTO) 67.4 % (42.2-75.2); PLATELET COUNT (AUTO) 236 K/uL (140-450); RED BLOOD CELL COUNT(AUTO) 5.57 MIL/uL (4.20-6.10); RED CELL DISTRIBUTION WIDTH 13.4 % (11.6-13.7); WHITE BLOOD COUNT (AUTO) 8.5 K/uL (4.8-10.8)
[2024-04-17] MEDS: FAMOTIDINE 20 MG TAB PO ONE (16:30)
[2024-04-17 16:37] LABS: ANION GAP 13.3 (8-16); CALCIUM 8.7 mg/dL (8.5-10.1); CARBON DIOXIDE 28.4 mmol/L (21-32); CREATININE 0.9 mg/dL (0.6-1.3); POTASSIUM 3.7 mmol/L (3.5-5.1); TOTAL BILIRUBIN 0.3 mg/dL (0.0-1.0); TOTAL PROTEIN, SERUM 7.9 g/dL (6.4-8.2)
[2024-04-17 16:39] LABS: AMPHETAMINE, URINE NEGATIVE ng/ml (NEG <=1000); BARBITURATE, URINE NEGATIVE ng/ml (NEG <=200); BENZODIAZEPINE, URINE NEGATIVE ng/mL (NEG <=200); CANNABINOID, URINE NEGATIVE ng/mL (NEG <=50); COCAINE, URINE NEGATIVE ng/mL (NEG <=300); OPIATE, URINE NEGATIVE ng/mL (NEG <=2000); PHENCYCLIDINE SCREEN,URINE NEGATIVE ng/mL (NEG <=25)
[2024-04-17] MEDS ORDERED: OMEP20EC11 PO (17:10)
[2024-04-17] MEDS ORDERED: ALUMINUM HYD/MAG/SIMETHICONE 30 ML UDC ONE (17:10)
[2024-04-17] MEDS ORDERED: DICYCLOMINE HCL LIQUID 10 MG/5 ML UDC ONE (17:10)
[2024-04-17] MEDS ORDERED: ONDA-188 SL (17:10)
[2024-04-17] MEDS: DICYCLOMINE HCL LIQUID 20 MG, ALUMINUM HYD/MAG/SIMETHICONE 30 ML, LIDOCAINE VISCOUS 2% ... PO ONE (17:12)
[2024-04-17 17:20] VITALS: BP 121/87; PULSE 66; RESP 16; TEMP 97.6; O2SAT 97
== END 2024-04-17 17:20 | disposition home or self-care (01) ==
LOC: MED 13:51
DX: R10.11 Right upper quadrant pain (principal); R10.13 Epigastric pain; R11.2 Nausea with vomiting, unspecified; R42 Dizziness and giddiness; K21.9 Gastro-esophageal reflux disease without esophagitis; E03.9 Hypothyroidism, unspecified; Z98.890 Other specified postprocedural states
CPT/HCPCS: 36415; 76705; 80053; 80305; 81003; 83690; 85025; 99284; Q0162